=== PATIENT | male | born 1965 | race Caucasian/White ===

== ENCOUNTER 2019-08-14 10:01 | Outpatient (CLI) | payer OTHER, SELFPAY ==
[2019-08-14 10:18] LABS: Hematocrit 45.8 % (40.0-54.0); Hemoglobin 15.6 g/dL (14.0-18.0); Mean Corpuscular HGB Conc 34.1 g/dL (32.0-36.0); Mean Corpuscular Hemoglobin 29.9 pg (27.0-31.0); Mean Corpuscular Volume 87.7 fL (78.0-102.0); Mean Platelet Volume 10.5 fl (8.7-11.0); Platelet Count Result 179 K/mm3 (150-420); Red Blood Count 5.22 M/mm3 (4.70-6.10); White Blood Count 6.6 K/mm3 (4.8-10.8)
[2019-08-14 11:35] LABS: Alanine Aminotransferase 115 U/L (16-63); Albumin Level 3.8 g/dL (3.4-5.0); Alkaline Phosphatase 54 U/L (46-116); Anion Gap 14.3 mmol/L (7-16); Aspartate Amino Transferase 43 U/L (15-37); Bilirubin,Total 0.5 mg/dL (0.00-1.00); Blood Urea Nitrogen 17 mg/dL (7-18); Calcium 9.1 mg/dL (8.5-10.1); Carbon Dioxide 27 mmol/L (21-32); Chloride 103 mmol/L (98-108); Cholesterol 217 mg/dL (0-200); Estimated Glomerular Filt Rate > 60; Glucose 97 mg/dL (70-99); HDL Direct 29 mg/dL (40-60); LDL Cholesterol Calculated 163 mg/dL (<130); Osmolality Calculated 291 mOsm/kg (285-295); Potassium 4.3 mmol/L (3.5-5.1); Prostate Specific Antigen 2.2 ng/mL (< OR = 4.0); Sodium 140 mmol/L (136-145); Thyroid Stimulating Hormone 1.23 uIU/mL (0.36-3.74); Total Protein 7.1 g/dL (6.4-8.2); Triglycerides 127 mg/dL (0-150)
[2019-08-14 13:56] LABS: Add Urine Microscopic? NO; Appearance Urine Clear (Clear); Bilirubin Urine Negative (Negative); Blood Urine Negative (Negative); Color Urine Yellow (Yellow); Glucose Urine UA Negative (Negative); Ketones Urine Negative (Negative); Leukocyte Esterase Ur Negative (Negative); Nitrate Urine Negative (Negative); Protein Urine Negative (Negative); Specific Grav Ur 1.025 (1.010-1.020); Urobilinogen Urine 0.2 mg/dL (0.2-1.0)
== END 2019-08-14 10:02 | disposition home or self-care (01) ==
LOC: CHSLAB 10:06
PROVIDERS: PCP Family Medicine; Visit Provider Family Medicine
DX: Z00.00 Encounter for general adult medical examination without abnormal findings (principal)
CPT/HCPCS: 36415; 80053; 80061; 81003; 84153; 84443; 85027; G0103

== ENCOUNTER 2020-02-02 08:16 | Outpatient (CLI) | payer OTHER, SELFPAY ==
[2020-02-02 10:00] LABS: Hemoglobin A1C 5.8 % (<5.7)
[2020-02-02 10:31] LABS: Alanine Aminotransferase 49 U/L (16-63); Albumin Level 3.7 g/dL (3.4-5.0); Alkaline Phosphatase 60 U/L (46-116); Anion Gap 10 mmol/L (8-16); Aspartate Amino Transferase 26 U/L (15-37); Bilirubin,Total 0.5 mg/dL (0.00-1.00); Blood Urea Nitrogen 17 mg/dL (7-18); Calcium 9.3 mg/dL (8.5-10.1); Carbon Dioxide 28 mmol/L (21-32); Chloride 102 mmol/L (98-108); Cholesterol 212 mg/dL (0-200); Estimated Glomerular Filt Rate > 60; Glucose 116 mg/dL (70-99); HDL Direct 31 mg/dL (40-60); LDL Cholesterol Calculated 150 mg/dL (<130); Osmolality Calculated 292 mOsm/kg (285-295); Potassium 4.5 mmol/L (3.5-5.1); Sodium 140 mmol/L (136-145); Total Protein 7.3 g/dL (6.4-8.2); Triglycerides 157 mg/dL (0-150)
== END 2020-02-02 08:17 | disposition home or self-care (01) ==
LOC: CHSLAB 08:17
PROVIDERS: PCP Family Medicine; Visit Provider Family Medicine
DX: E78.2 Mixed hyperlipidemia (principal); I10 Essential (primary) hypertension; R73.01 Impaired fasting glucose
CPT/HCPCS: 36415; 80053; 80061; 83036

== ENCOUNTER → 2020-02-15 12:23 | Outpatient (CLI) | payer OTHER, SELFPAY ==
--- NOTE | ~2020-02-15 | XR_ITS ---
EXAMINATION: XR knee RT 3V DATE: 02/15/2020 13:15 INDICATION: Right knee pain. TECHNIQUE: 3 views of right knee were obtained. COMPARISON: None. FINDINGS: There is varus angulation at the knee. No fracture. There is severe osteoarthritis of media l compartment, moderate osteoarthritis of patellofemoral compartment, and mild osteoarthritis of late ral compartment. There is a small knee joint effusion. There are loose bodies in a Bah's cyst. IMPRESSION: 1. Severe right knee osteoarthritis. 2. Small knee joint effusion. 3. Loose bodies in a Bah's cyst. Reviewed, dictated and finalized at location B.
--- NOTE | ~2020-02-15 | XR_ITS ---
EXAMINATION: XR knee LT 3V DATE: 02/15/2020 13:15 INDICATION: Left knee pain. TECHNIQUE: 3 views of left knee were obtained. COMPARISON: None. FINDINGS: There is varus angulation at the knee. No fracture. There is moderate osteoarthritis of med ial compartment and mild osteoarthritis of lateral and patellofemoral compartments. There is a modera te-sized knee joint effusion. IMPRESSION: 1. Moderate left knee osteoarthritis. 2. Moderate-sized left knee joint effusion. Reviewed, dictated and finalized at location B.
== END ==
PROVIDERS: PCP Family Medicine; Visit Provider Physician Assistant
DX: M17.0 Bilateral primary osteoarthritis of knee (principal); M25.461 Effusion, right knee; M23.41 Loose body in knee, right knee; M71.21 Synovial cyst of popliteal space [Baker], right knee; M25.462 Effusion, left knee
CPT/HCPCS: 73562

== ENCOUNTER 2020-05-14 07:26 | Outpatient (CLI) | payer OTHER, SELFPAY ==
[2020-05-14 08:54] LABS: Alanine Aminotransferase 46 U/L (16-63); Albumin Level 3.7 g/dL (3.4-5.0); Alkaline Phosphatase 53 U/L (46-116); Anion Gap 7 mmol/L (8-16); Aspartate Amino Transferase 24 U/L (15-37); Bilirubin,Total 0.4 mg/dL (0.00-1.00); Blood Urea Nitrogen 18 mg/dL (7-18); Calcium 9.8 mg/dL (8.5-10.1); Carbon Dioxide 31 mmol/L (21-32); Chloride 99 mmol/L (98-108); Cholesterol 221 mg/dL (0-200); Estimated Glomerular Filt Rate 52; Glucose 116 mg/dL (70-99); HDL Direct 30 mg/dL (40-60); LDL Cholesterol Calculated 157 mg/dL (<130); Osmolality Calculated 286 mOsm/kg (285-295); Potassium 4.6 mmol/L (3.5-5.1); Sodium 137 mmol/L (136-145); Total Protein 7.3 g/dL (6.4-8.2); Triglycerides 172 mg/dL (0-150)
== END 2020-05-14 07:27 | disposition home or self-care (01) ==
LOC: CHSLAB 07:27
PROVIDERS: PCP Family Medicine; Visit Provider Physician Assistant
DX: E78.5 Hyperlipidemia, unspecified (principal); I10 Essential (primary) hypertension; R73.01 Impaired fasting glucose
CPT/HCPCS: 36415; 80053; 80061

== ENCOUNTER 2020-06-05 07:56 | Outpatient (RCR) | payer OTHER, SELFPAY ==
--- NOTE | 2020-06-05 08:47 | PTOPEVAL ---
Thank you for referring Colin Gross to [facility].? The patient is scheduled to be seen for therapy? ____x/week for ___ weeks. Please review, sign, date and return this plan of care SHYANN. I agree with and certify that the following plan of care is medically necessary. Referring Physician Date Admitting Provider: Attending Provider: Jonatan Summers MD Referring Provider: *PT Outpatient Evaluation Start: 06/05/20 07:58 Freq: Status: Active Protocol: Document 06/05/20 08:05 AARON (Rec: 06/05/20 08:47 [id number]) Therapy Assessment Status Assessment Status Assessment Status Evaluation Evaluation Information Problem Diagnosis bilateral knee OA Onset 04/23/20 Additional Evaluation Detail LEFS = 12% functionally declined Subjective Information patient reports he has been Query Text:As Reported By Patient/ having pain in the bilateral Family knees for years off and on. he reports the L knee is now the worse of the two. he reports he is trying to avoid having knee replacement. he reports he had injections to the knees in mid april. he reports since then he has aman feeling better. he reports prior to this he had a lot of trouble walking up and down steps, walking in general, and getting up and down from the ground. 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 Prior Level of Function Comments Additional Prior Level of Function patient reports he has been Comments having pain in the knee for years. he reports he is trying to put off having knee replacement until he is closer to retired or retired. Pain Assessment Timing of Pain Assessment Timing of Pain Assessment Assessment Pain Scale Pain Scale Used Numeric (1 - 10) Self Report Pain Assessment Bilateral Knee(s) Reported Pain Level 2 Pain Frequency Chronic,Continuous Lowest Pain Intensity 1 Greatest Pain Intensity 4 Pain Score Pain Score 2: Self Report Interventions Used Interventions Used By Clinicians Activity or ADL's,Education, Exercise,Heat,Ice,Walking Lower Extremity Range of Motion Knee Range of Motion Left Knee Flexion Range of Motion - Active 115
== END 2020-06-18 10:25 | disposition home or self-care (01) ==
LOC: CHSPT 07:56
PROVIDERS: PCP Family Medicine; Visit Provider Orthopaedic Surgery
DX: M17.0 Bilateral primary osteoarthritis of knee (principal)
CPT/HCPCS: 97110; 97161; 97530

== ENCOUNTER 2020-11-06 07:12 | Outpatient (CLI) | payer OTHER, SELFPAY ==
[2020-11-06 08:47] LABS: Prostate Specific Antigen 4.6 ng/mL (< OR = 4.0)
== END 2020-11-06 07:13 | disposition home or self-care (01) ==
LOC: CHSLAB 07:13
PROVIDERS: PCP Family Medicine; Visit Provider Family Medicine
DX: R35.1 Nocturia (principal)
CPT/HCPCS: 36415; 84153

== ENCOUNTER 2020-11-11 14:08 | Outpatient (CLI) | payer OTHER, SELFPAY ==
[2020-11-11 15:43] LABS: SARS-CoV-2 RNA PCR Negative (Negative)
== END 2020-11-11 14:09 | disposition home or self-care (01) ==
LOC: CHSLAB 14:11
PROVIDERS: PCP Family Medicine; Visit Provider Physician Assistant
DX: R05 Cough (principal); Z20.822 Contact with and (suspected) exposure to COVID-19
CPT/HCPCS: C9803; U0003; U0005

== ENCOUNTER 2021-01-22 09:40 | Outpatient (CLI) | payer OTHER, SELFPAY ==
[2021-01-22 09:54] LABS: Basophils Absolute Auto 0.06 K/mm3 (0.00-0.10); Basophils Percent Auto 0.9 % (0.0-1.0); Eosinophils Absolute Auto 0.11 K/mm3 (0.02-0.50); Eosinophils Percent Auto 1.7 % (1.0-6.0); Hematocrit 47.2 % (40.0-54.0); Hemoglobin 15.9 g/dL (14.0-18.0); Immature Granulocyte Absolute 0.02 K/mm3 (0.00-0.00); Immature Granulocyte Percent A 0.3 % (0.0-0.0); Lymphocytes Absolute Auto 1.85 K/mm3 (1.10-4.50); Lymphocytes Percent Auto 28.7 % (18.0-42.0); Mean Corpuscular HGB Conc 33.7 g/dL (32.0-36.0); Mean Corpuscular Hemoglobin 29.8 pg (27.0-31.0); Mean Corpuscular Volume 88.6 fL (78.0-102.0); Mean Platelet Volume 10.5 fl (8.7-11.0); Monocytes Absolute Auto 0.66 K/mm3 (0.10-0.90); Monocytes Percent Auto 10.2 % (2.0-11.0); Neutrophils Absolute Auto 3.7 K/mm3 (1.7-7.2); Neutrophils Percent Auto 58.2 % (50.0-70.0); Platelet Count Result 176 K/mm3 (150-420); Red Blood Count 5.33 M/mm3 (4.70-6.10); Red Cell Distribution Width 12.7 % (11.6-14.4); White Blood Count 6.4 K/mm3 (4.8-10.8)
[2021-01-22 09:55] LABS: Add Urine Microscopic? NO; Appearance Urine Clear (Clear); Bilirubin Urine Negative (Negative); Blood Urine Negative (Negative); Color Urine Light Yellow (Yellow); Glucose Urine UA Negative (Negative); Ketones Urine Negative (Negative); Leukocyte Esterase Ur Negative (Negative); Nitrate Urine Negative (Negative); Protein Urine Negative (Negative); Specific Grav Ur 1.015 (1.010-1.020); Urobilinogen Urine 0.2 mg/dL (0.2-1.0); pH Urine 6.5 (5.0-8.0)
[2021-01-22 10:23] LABS: Hemoglobin A1C 5.6 % (<5.7)
[2021-01-22 10:40] LABS: Alanine Aminotransferase 46 U/L (16-63); Albumin Level 3.8 g/dL (3.4-5.0); Alkaline Phosphatase 54 U/L (46-116); Anion Gap 8 mmol/L (8-16); Aspartate Amino Transferase 26 U/L (15-37); Bilirubin,Total 0.5 mg/dL (0.00-1.00); Blood Urea Nitrogen 26 mg/dL (7-18); Carbon Dioxide 31 mmol/L (21-32); Chloride 101 mmol/L (98-108); Cholesterol 220 mg/dL (0-200); Estimated Glomerular Filt Rate > 60; Glucose 104 mg/dL (70-99); HDL Direct 35 mg/dL (40-60); LDL Cholesterol Calculated 161 mg/dL (<130); Osmolality Calculated 294 mOsm/kg (285-295); Potassium 4.1 mmol/L (3.5-5.1); Sodium 140 mmol/L (136-145); Thyroid Stimulating Hormone 0.74 uIU/mL (0.36-3.74); Total Protein 7.4 g/dL (6.4-8.2); Triglycerides 120 mg/dL (0-150)
== END 2021-01-22 09:41 | disposition home or self-care (01) ==
LOC: CHSLAB 09:44
PROVIDERS: PCP Family Medicine; Visit Provider Physician Assistant
DX: E78.5 Hyperlipidemia, unspecified (principal); R73.01 Impaired fasting glucose; I10 Essential (primary) hypertension; Z00.00 Encounter for general adult medical examination without abnormal findings
CPT/HCPCS: 36415; 80053; 80061; 81003; 83036; 84443; 85025

== ENCOUNTER 2021-08-18 08:12 | Outpatient (CLI) | payer OTHER, SELFPAY ==
[2021-08-18 09:41] LABS: Influenza A QL RT-PCR Negative (Negative); Influenza B QL RT-PCR Negative (Negative); SARS-CoV-2 RNA PCR Negative (Negative)
== END 2021-08-18 08:13 | disposition home or self-care (01) ==
LOC: CHSLAB 08:15
PROVIDERS: PCP Family Medicine; Visit Provider Family Medicine
DX: R05.9 Cough, unspecified (principal); R50.9 Fever, unspecified; Z20.822 Contact with and (suspected) exposure to COVID-19
CPT/HCPCS: 87502; C9803; U0003; U0005

== ENCOUNTER 2021-08-19 06:50 | Outpatient (CLI) | payer OTHER, SELFPAY ==
--- NOTE | ~2021-08-19 | XR_ITS ---
EXAMINATION: XR chest 2V DATE: 08/19/2021 07:02 INDICATION: Cough, unspecified TECHNIQUE: Frontal and lateral views of the chest are obtained COMPARISON: None available FINDINGS: The lungs are free of acute opacities. There is no pleural effusion or pneumothorax. The ca rdiomediastinal silhouette is normal. There is mild thoracic spondylosis. IMPRESSION: 1. No acute cardiopulmonary abnormality. Reviewed, dictated and finalized at location A.
== END 2021-08-19 06:51 | disposition home or self-care (01) ==
LOC: ANHIMG 06:52
PROVIDERS: PCP Family Medicine; Visit Provider Physician Assistant
DX: R05.9 Cough, unspecified (principal)
CPT/HCPCS: 71046

== ENCOUNTER 2021-08-26 07:21 | Outpatient (CLI) | payer OTHER, SELFPAY ==
[2021-08-26 07:49] LABS: Hemoglobin A1C 6.2 % (<5.7)
[2021-08-26 08:16] LABS: Alanine Aminotransferase 44 U/L (16-63); Albumin Level 3.6 g/dL (3.4-5.0); Alkaline Phosphatase 59 U/L (46-116); Anion Gap 6 mmol/L (8-16); Aspartate Amino Transferase 24 U/L (15-37); Bilirubin,Total 0.4 mg/dL (0.00-1.00); Blood Urea Nitrogen 15 mg/dL (7-18); Calcium 9.1 mg/dL (8.5-10.1); Carbon Dioxide 32 mmol/L (21-32); Chloride 102 mmol/L (98-108); Cholesterol 206 mg/dL (0-200); Estimated Glomerular Filt Rate > 60; Glucose 118 mg/dL (70-99); HDL Direct 31 mg/dL (40-60); LDL Cholesterol Calculated 147 mg/dL (<130); Osmolality Calculated 291 mOsm/kg (285-295); Potassium 4.2 mmol/L (3.5-5.1); Sodium 140 mmol/L (136-145); Total Protein 7.4 g/dL (6.4-8.2); Triglycerides 138 mg/dL (0-150)
== END 2021-08-26 07:22 | disposition home or self-care (01) ==
LOC: CHSLAB 07:24
PROVIDERS: PCP Family Medicine; Visit Provider Physician Assistant
DX: E78.5 Hyperlipidemia, unspecified (principal); R73.01 Impaired fasting glucose; I10 Essential (primary) hypertension
CPT/HCPCS: 36415; 80053; 80061; 83036

== ENCOUNTER 2021-09-01 16:15 | Outpatient (CLI) | payer OTHER, SELFPAY ==
[2021-09-04 10:10] LABS: Testosterone Total 372 ng/dL (250-1100)
== END 2021-09-01 16:16 | disposition home or self-care (01) ==
LOC: CHSLAB 16:16
PROVIDERS: PCP Family Medicine; Visit Provider Physician Assistant
DX: R79.89 Other specified abnormal findings of blood chemistry (principal)
CPT/HCPCS: 36415; 84403

== ENCOUNTER 2021-09-15 10:20 | Outpatient (CLI) | payer OTHER, SELFPAY ==
[2021-09-15 11:45] LABS: Influenza A QL RT-PCR Positive (Negative); Influenza B QL RT-PCR Negative (Negative); SARS-CoV-2 RNA PCR Negative (Negative)
== END 2021-09-15 10:21 | disposition home or self-care (01) ==
LOC: CHSLAB 10:30
PROVIDERS: PCP Nurse Practitioner Family; Visit Provider Nurse Practitioner Family
DX: R05.9 Cough, unspecified (principal); Z20.822 Contact with and (suspected) exposure to COVID-19
CPT/HCPCS: 87502; C9803; U0003; U0005

== ENCOUNTER 2022-01-16 09:34 | Emergency (ER) | payer OTHER, SELFPAY ==
[2022-01-16] VITALS (17 sets, daily range): BP systolic 128–163; BP diastolic 84–107; PULSE 75–89; RESP 16; TEMP 37.2; O2SAT 92–99
--- NOTE | 2022-01-16 11:17 | PC.NURSE ---
1100 Assumed pt care from TIN Garcia
--- NOTE | 2022-01-16 11:46 | ED.HEATRA ---
HPI - Head Injury General Chief complaint: Head Injury Stated complaint: forehead laceration Time Seen by Provider: 01/16/22 11:28 Source: patient Mode of arrival: ambulatory Limitations: no limitations History of Present Illness HPI Narrative: This is a 56-year-old male that presents to the emergency department for a laceration to his forehead sustained just prior to arrival. Reports he was walking and accidentally hit his head on some ductwork. Reports bleeding and mild aching pain to the area. He did not lose consciousness. He is not on any blood thinners. He is not up-to-date on tetanus. Denies vision changes, vomiting, numbness, or weakness. Related Data Allergies Allergy/AdvReac Type Severity Reaction Status Date / Time amlodipine Allergy Unknown Edema Verified 01/05/22 14:12 Review of Systems Review of Systems: CONSTITUTIONAL: Denies fever SKIN: Reports laceration NEUROLOGIC: Denies headache, numbness, or weakness. All systems reviewed & are unremarkable except as noted in HPI and below PMFSH Past Medical History Medical History Allergic rhinitis BPH (benign prostatic hyperplasia) Chronic GERD Essential (primary) hypertension Family history of ASCVD (arteriosclerotic cardiovascular disease) Fatty liver disease, nonalcoholic History of diverticulitis of colon HLD (hyperlipidemia) IFG (impaired fasting glucose) DELPHINE (obstructive sleep apnea) Surgical History Surgical History History of tonsillectomy Status post labral repair of shoulder left Family History Family History Sibling Diabetes mellitus Father Hypertension Mother Hypertension Family history of cardiovascular disease Other Family history of type 2 diabetes mellitus Social History Social History Smoking status: Never smoker Second hand tobacco smoke exposure: No Alcohol intake: former Alcohol use details: rare Substance use: never Substance use type: does not use Gender identity (if verbalized by the patient): Male Sexual Orientation (if Verbalized by the Patient): Straight or Heterosexual Exam Narrative: GENERAL: Well-appearing, well-nourished, and in no acute distress. HEAD: Normocephalic. 4 cm linear laceration into subcutaneous tissue to the left side of the forehead EYES: PERRLA and EOMI. ENT: Nares clear, no rhinorrhea or epistaxis. Mucous membranes moist. Oropharynx without tonsillar hypertrophy exudate or other lesions. Bilateral TMs pearly waters non-bulging NECK: Supple. No adenopathy or masses. CHEST: No respiratory distress. HEART: Regular rate EXTREMITIES: Normal range of motion. No edema. SKIN: Warm, dry, no rash. NEURO: No focal deficits. Alert and oriented x3. Cranial nerves II through XII grossly intact PSYCH: Normal mood and affect Course Vital Signs Vital signs: Vital Signs Temperature 98.9 F 01/16/22 09:42 Pulse Rate 89 01/16/22 09:42 Respiratory Rate 16 01/16/22 09:42 Blood Pressure 128/84 01/16/22 09:42 Pulse Oximetry 98 01/16/22 09:42 Temperature 98.9 F 01/16/22 09:42 Pulse Rate 87 01/16/22 10:42 Respiratory Rate 16 01/16/22 10:42 Blood Pressure 142/96 H 01/16/22 11:17 Pulse Oximetry 97 01/16/22 11:30 Oxygen Delivery Room Air 01/16/22 11:30 Procedures Laceration Laceration 1: Date: 01/16/22 Time: 13:16 Site: face Size (cm): 4 Description: linear Depth: simple, single layer Local Anesthetic: lidocaine 1% and with epi Amount of anesthesia used (mL): 3 Pre-repair: irrigated ====== Skin Level ====== Skin layer closed with: nylon Size (cm): 5-0 Number of sutures: 7 Technique: simple, interrupted ====== Subcutaneo
[2022-01-16] MEDS: TETANUS,DIPHTHERIA,AC PERTUSSIS ADULT (0.5 ML) BOOSTRIX IM (11:51)
[2022-01-16] MEDS: ACETAMINOPHEN 500 MG TABLET 1000 MG PO (11:52)
[2022-01-16] MEDS: LIDO 1%/EPINEPHRINE 1:100,000 20 ML VIAL INFILTRATE (12:39)
== END 2022-01-16 13:30 | disposition home or self-care (01) ==
PROVIDERS: Emergency Provider Emergency Medicine; PCP Family Medicine
DX: S01.81XA Laceration without foreign body of other part of head, initial encounter (principal); Z23 Encounter for immunization; I10 Essential (primary) hypertension; E78.5 Hyperlipidemia, unspecified; N40.0 Benign prostatic hyperplasia without lower urinary tract symptoms; K21.9 Gastro-esophageal reflux disease without esophagitis; K76.0 Fatty (change of) liver, not elsewhere classified; G47.33 Obstructive sleep apnea (adult) (pediatric); W22.8XXA Striking against or struck by other objects, initial encounter
CPT/HCPCS: 12013; 90471; 90715; 99283; A9270

== ENCOUNTER 2022-02-18 07:05 | Outpatient (CLI) | payer OTHER, SELFPAY ==
[2022-02-18 07:18] LABS: Add Urine Microscopic? NO; Appearance Urine Clear (Clear); Bilirubin Urine Negative (Negative); Blood Urine Negative (Negative); Color Urine Yellow (Yellow); Glucose Urine UA Negative (Negative); Hematocrit 45.8 % (40.0-54.0); Hemoglobin 15.2 g/dL (14.0-18.0); Ketones Urine Negative (Negative); Leukocyte Esterase Ur Negative (Negative); Mean Corpuscular HGB Conc 33.2 g/dL (32.0-36.0); Mean Corpuscular Hemoglobin 28.8 pg (27.0-31.0); Mean Corpuscular Volume 86.7 fL (78.0-102.0); Mean Platelet Volume 10.3 fl (8.7-11.0); Nitrate Urine Negative (Negative); Platelet Count Result 192 K/mm3 (150-420); Protein Urine Negative (Negative); Red Blood Count 5.28 M/mm3 (4.70-6.10); Red Cell Distribution Width 13.2 % (11.6-14.4); Urobilinogen Urine 0.2 mg/dL (0.2-1.0); White Blood Count 6.9 K/mm3 (4.8-10.8); pH Urine 6.5 (5.0-8.0)
[2022-02-18 07:32] LABS: Hemoglobin A1C 5.8 % (<5.7)
[2022-02-18 08:36] LABS: Alanine Aminotransferase 44 U/L (16-63); Albumin Level 3.6 g/dL (3.4-5.0); Alkaline Phosphatase 60 U/L (46-116); Anion Gap 6 mmol/L (8-16); Aspartate Amino Transferase 23 U/L (15-37); Bilirubin,Total 0.5 mg/dL (0.00-1.00); Blood Urea Nitrogen 18 mg/dL (7-18); Calcium 8.9 mg/dL (8.5-10.1); Carbon Dioxide 30 mmol/L (21-32); Chloride 100 mmol/L (98-108); Cholesterol 203 mg/dL (0-200); Estimated Glomerular Filt Rate > 60; Glucose 127 mg/dL (70-99); HDL Direct 34 mg/dL (40-60); LDL Cholesterol Calculated 149 mg/dL (<130); Osmolality Calculated 285 mOsm/kg (285-295); Potassium 4.1 mmol/L (3.5-5.1); Prostate Specific Antigen 3.7 ng/mL (< OR = 4.0); Sodium 136 mmol/L (136-145); Thyroid Stimulating Hormone 1.09 uIU/mL (0.36-3.74); Total Protein 7.6 g/dL (6.4-8.2); Triglycerides 98 mg/dL (0-150)
[2022-02-21 11:29] LABS: Testosterone Total 401 ng/dL (250-1100)
== END 2022-02-18 07:06 | disposition home or self-care (01) ==
LOC: CHSLAB 07:07
PROVIDERS: PCP Family Medicine; Visit Provider Physician Assistant
DX: R97.20 Elevated prostate specific antigen [PSA] (principal); I10 Essential (primary) hypertension; I73.01 Raynaud's syndrome with gangrene; E78.5 Hyperlipidemia, unspecified; N40.0 Benign prostatic hyperplasia without lower urinary tract symptoms; N52.9 Male erectile dysfunction, unspecified; Z00.00 Encounter for general adult medical examination without abnormal findings
CPT/HCPCS: 36415; 80053; 80061; 81003; 83036; 84153; 84403; 84443; 85027

== ENCOUNTER 2022-02-22 13:17 | Outpatient (CLI) | payer OTHER, SELFPAY ==
--- NOTE | ~2022-02-22 | CT_ITS ---
EXAMINATION: CT diagnostic chest wo con DATE: 02/22/2022 13:39 INDICATION: Chronic cough and hemoptysis TECHNIQUE: Computed tomography (CT) of the chest was performed without intravenous contrast. The dose -length product (DLP) was 767.24 mGy-cm. Automated exposure control and iterative reconstruction tech nique were employed. COMPARISON: None FINDINGS: The lungs are free of acute opacities. No pleural effusion or pneumothorax. Calcified pulmo nary nodules are consistent with old granulomatous disease. No pathologically enlarged thoracic lymph nodes are identified. The heart size is normal. There is calcified coronary artery atherosclerosis. There is a chronic 2.1 cm left adrenal adenoma. There is moderate thoracic spondylosis. IMPRESSION: 1. No CT correlate for the patient's symptoms. Reviewed, dictated and finalized at location A.
== END 2022-02-22 13:18 | disposition home or self-care (01) ==
PROVIDERS: PCP Family Medicine; Visit Provider Physician Assistant
DX: R04.2 Hemoptysis (principal); R05.9 Cough, unspecified
CPT/HCPCS: 71250

== ENCOUNTER 2022-08-21 11:16 | Outpatient (CLI) | payer OTHER, SELFPAY ==
[2022-08-21 11:34] LABS: Hemoglobin A1C 6.6 % (<5.7)
[2022-08-21 12:02] LABS: Alanine Aminotransferase 88 U/L (16-63); Albumin Level 3.7 g/dL (3.4-5.0); Alkaline Phosphatase 68 U/L (46-116); Anion Gap 9 mmol/L (8-16); Aspartate Amino Transferase 37 U/L (15-37); Bilirubin,Total 0.4 mg/dL (0.00-1.00); Blood Urea Nitrogen 21 mg/dL (7-18); Carbon Dioxide 30 mmol/L (21-32); Chloride 100 mmol/L (98-108); Estimated Glomerular Filt Rate 55; Glucose 133 mg/dL (70-99); Osmolality Calculated 293 mOsm/kg (285-295); Potassium 4.6 mmol/L (3.5-5.1); Sodium 139 mmol/L (136-145); Total Protein 7.8 g/dL (6.4-8.2)
== END 2022-08-21 11:17 | disposition home or self-care (01) ==
PROVIDERS: PCP Family Medicine; Visit Provider Physician Assistant
DX: I10 Essential (primary) hypertension (principal); R73.01 Impaired fasting glucose
CPT/HCPCS: 36415; 80053; 83036

== ENCOUNTER 2022-11-17 09:28 | Emergency (ER) | payer OTHER, SELFPAY ==
--- NOTE | ~2022-11-17 | XR_ITS ---
EXAMINATION: XR wrist LT min 3V DATE: 11/17/2022 09:49 INDICATION: Left wrist pain and swelling post injury TECHNIQUE: Posteroanterior, ulnar deviation, oblique, and lateral views of the left wrist were obtain ed. COMPARISON: none FINDINGS: There is widening of the scapholunate interval consistent with scapholunate ligament tear. No evident associated dorsal intercalated segment instability (DISI) on the lateral projection. There is howeve r atypical predominance of osteoarthritis at the lunocapitate articulation of the midcarpal joint and at the radioscaphoid articulation of the wrist joint, the latter with subarticular cystic changes at both the radial styloid process and proximal pole of the scaphoid. This would be consistent with sca pholunate advanced collapse (SLAC) wrist and consistent with chronic tear of the scapholunate ligamen t. No fractures. Additional polyarticular osteoarthritis, moderate severity at the third metacarpopha langeal joint and mild at the distal radioulnar, triscaphe, first carpometacarpal and several of the visualized interphalangeal joints. Chronic appearing erosions along the radial side of the scaphoid w aist. No other lesions suspicious for erosions identified. Soft tissues are unremarkable. IMPRESSION: 1. Mild to moderate polyarticular osteoarthritis with atypical predominance at the lunocapitate and r adioscaphoid articulations consistent with scapholunate advanced collapse (SLAC) wrist secondary to l ikely chronic tear of the scapholunate ligament. 2. Additional atypical prominence of moderate osteoarthritis at the third metacarpophalangeal joint w hich could be related to prior trauma, infection or potentially crystalline arthropathy such as calci um pyrophosphate deposition (CPPD) disease with suggestion of erosions along the radial aspect of the scaphoid. Reviewed, dictated and finalized at location A. IMPRESSION: 1. Mild to moderate polyarticular osteoarthritis with atypical predominance at the lunocapitate and radioscaphoid articulations consistent with scapholunate a dvanced collapse (SLAC) wrist secondary to likely chronic tear of the scapholun ate ligament. 2. Additional atypical prominence of moderate osteoarthritis at the third metac arpophalangeal joint which could be related to prior trauma, infection or poten tially crystalline arthropathy such as calcium pyrophosphate deposition (CPPD) disease with suggestion of erosions along the radial aspect of the scaphoid.
[2022-11-17 09:31] VITALS: BP 182/106; PULSE 95; RESP 16; TEMP 36.3; O2SAT 95
--- NOTE | 2022-11-17 10:15 | ED.UPPEXIN ---
HPI - Extremity Injury (Upper) General Chief Complaint: Extremity Injury, Upper Stated Complaint: left hand and wrist injury Time Seen by Provider: 11/17/22 09:38 Source: patient Mode of arrival: ambulatory Limitations: no limitations History of Present Illness HPI narrative: This is a 57-year-old male that presents to the emergency department for left wrist injury sustained just prior to arrival. Reports he was trying to close a lift gate and it fell back on him. He tried to catch it with his hands and it bent his left wrist back. Reports pain to the area decreased range of motion. Denies numbness. Related Data Allergies Allergy/AdvReac Type Severity Reaction Status Date / Time amlodipine Allergy Unknown Edema Verified 11/17/22 09:29 Review of Systems Review of Systems: CONSTITUTIONAL: Denies fever SKIN: Denies laceration MUSCULOSKELETAL: Reports joint pain, and myalgia. NEUROLOGIC: Denies numbness All systems reviewed & are unremarkable except as noted in HPI and below PMFSH Past Medical History Medical History Allergic rhinitis BPH (benign prostatic hyperplasia) Chronic GERD Essential (primary) hypertension Family history of ASCVD (arteriosclerotic cardiovascular disease) Fatty liver disease, nonalcoholic History of diverticulitis of colon HLD (hyperlipidemia) IFG (impaired fasting glucose) DELPHINE (obstructive sleep apnea) Surgical History Surgical History History of tonsillectomy Status post labral repair of shoulder left Family History Family History Sibling Diabetes mellitus Father Hypertension Mother Hypertension Family history of cardiovascular disease Other Family history of type 2 diabetes mellitus Social History Social History Smoking status: Never smoker Second hand tobacco smoke exposure: No Alcohol intake: former Alcohol use details: rare Substance use: never Substance use type: does not use Lack of Transportation: No Current Housing: I Have Housing Concerned About Future Housing: No Difficulty Paying Gas/Electric Bills: No Difficulty Paying for Meds: No Currently Unemployed: No Education: Trade/Vocational Certificate Difficulty w/ Childcare or Family Care: No Living arrangements: with family Occupation/Education: occupation Gender identity (if verbalized by the patient): Male Sexual Orientation (if Verbalized by the Patient): Straight or Heterosexual Exam Narrative: GENERAL: Well-appearing, well-nourished, and in no acute distress. HEAD: Normocephalic, atraumatic. EYES: EOMI. EXTREMITIES: Mildly decreased active range of motion in the left wrist due to pain. No edema or obvious deformity. Normal radial pulse. Normal sensation SKIN: Warm, dry, no rash. NEURO: No focal deficits. Alert and oriented x3. PSYCH: Normal mood and affect Course Course Emergency Course: Patient was updated on work-up and agrees with plan of care Vital Signs Vital signs: Vital Signs Temperature 97.3 F L 11/17/22 09:31 Pulse Rate 95 11/17/22 09:31 Respiratory Rate 16 11/17/22 09:31 Blood Pressure 182/106 H 11/17/22 09:31 Pulse Oximetry 95 11/17/22 09:31 Oxygen Delivery Room Air 11/17/22 09:31 Temperature 97.3 F L 11/17/22 09:31 Pulse Rate 95 11/17/22 09:31 Respiratory Rate 16 11/17/22 09:31 Blood Pressure 182/106 H 11/17/22 09:31 Pulse Oximetry 95 11/17/22 09:31 Oxygen Delivery Room Air 11/17/22 09:31 MDM - Extremity Injury (Upper) MDM Narrative Medical decision making narrative: Patient presents to the emergency department after a left wrist injury at work today. He is neurovascularly intact. Left wrist x-ray shows chronic findings of osteoarthritis and possible evidence of CPPD, there
[2022-11-17] MEDS: LOSARTAN POTASSIUM 100 MG TABLET PO (11:15)
[2022-11-17] MEDS: IBUPROFEN 600 MG TABLET PO (11:15)
[2022-11-17 11:29] VITALS: BP 170/91; PULSE 92; RESP 17; O2SAT 96
== END 2022-11-17 11:31 | disposition home or self-care (01) ==
PROVIDERS: Emergency Provider Physician Assistant; PCP Family Medicine
DX: S63.502A Unspecified sprain of left wrist, initial encounter (principal); I10 Essential (primary) hypertension; E78.5 Hyperlipidemia, unspecified; M19.032 Primary osteoarthritis, left wrist; W22.8XXA Striking against or struck by other objects, initial encounter
CPT/HCPCS: 73110; 99283; A9270

== ENCOUNTER 2022-12-17 06:37 | Outpatient (CLI) | payer OTHER, SELFPAY ==
--- NOTE | ~2022-12-17 | MR_ITS ---
MRI of the left wrist Technique: Coronal T1 weighted and proton density fat sat images, and axial and sagittal proton-densi ty and proton-density fat-sat images were acquired. Clinical History: Sprain Findings: There is complete rupture of the scapholunate ligament, with widening of the scapholunate i nterval to 7 mm. Lunotriquetral ligament appears to be intact. Central articular disc of the TFCC balaji ears to be intact, without evidence for perforation. There is severe osteoarthritis of the radial scaphoid articulation, with cystic change and reactive m arrow edema in the scaphoid and radial styloid process. There is additional moderate to advanced dege nerative change of the STT articulations. There is mild degenerative change of the capitate lunate ar ticulation. There is a large intraosseous cyst within the hamate bone. There is dorsal tilt of the penny dereje bone with increased scapholunate angle, compatible with DISI. Flexor tendons in the carpal tunnel are unremarkable. Extensor tendons are intact. Visualized muscula ture unremarkable. No soft tissue mass or fluid collection evident. IMPRESSION: Scapholunate ligament rupture with scapholunate dissociation, and associated DISI. Associated SLAC wrist, with severe osteoarthritis of the radial scaphoid articulation, mild degenerat jorden change of the capitate lunate articulation, an additional moderate to advanced degenerative mccormick e of the STT articulations. Reviewed, dictated and finalized at location . IMPRESSION: Scapholunate ligament rupture with scapholunate dissociation, and associated DI SI. Associated SLAC wrist, with severe osteoarthritis of the radial scaphoid articu lation, mild degenerative change of the capitate lunate articulation, an additi onal moderate to advanced degenerative change of the STT articulations.
== END 2022-12-17 06:38 | disposition home or self-care (01) ==
PROVIDERS: PCP Family Medicine; Visit Provider Plastic Surgery
DX: S63.512A Sprain of carpal joint of left wrist, initial encounter (principal); M19.032 Primary osteoarthritis, left wrist
CPT/HCPCS: 73221

== ENCOUNTER 2023-02-24 10:24 | Outpatient (CLI) | payer OTHER, SELFPAY ==
--- NOTE | 2023-02-24 10:34 | ECG_ITS ---
Measurements Intervals [place] Rate: 87 P: 9 OR: 170 QRS: 255 QRSD: 138 T: 5 QT: 390 QTc: 470 Interpretive Statements SINUS RHYTHM BASELINE ARTIFACT RIGHT BUNDLE-BRANCH BLOCK ABNORMAL ECG NO PREVIOUS ECG AVAILABLE FOR COMPARISON Electronically Signed On 02-24-2023 17:18:43 CDT by Syed Norman M.D.
[2023-02-24 11:10] LABS: Anion Gap 6 mmol/L (8-16); Blood Urea Nitrogen 15 mg/dL (9-20); Calcium 8.4 mg/dL (8.4-10.2); Carbon Dioxide 26 mmol/L (22-30); Chloride 101 mmol/L (98-107); Estimated Glomerular Filt Rate > 60; Glucose 255 mg/dL (65-110); Potassium 4.3 mmol/L (3.4-5.0); Sodium 133 mmol/L (137-145)
== END 2023-02-24 10:25 | disposition home or self-care (01) ==
PROVIDERS: Anesthesiology; PCP Family Medicine; Visit Provider Plastic Surgery
DX: Z01.818 Encounter for other preprocedural examination (principal); I45.10 Unspecified right bundle-branch block; R94.31 Abnormal electrocardiogram [ECG] [EKG]; E78.5 Hyperlipidemia, unspecified; I10 Essential (primary) hypertension; Z79.899 Other long term (current) drug therapy
CPT/HCPCS: 36415; 80048; 93005

== ENCOUNTER 2023-03-03 01:08 | Day surgery (SDC) | payer OTHER, SELFPAY ==
[2023-02-18 17:45] VITALS: BMI 41.9
--- NOTE | 2023-02-18 17:46 | PC.NURSE ---
Addendum entered by Eri Cruz RN 02/21/23 12:43: NO FOOD OR DRINK FOR 8 HOURS PRIOR TO THE PROCEDURE (EXCEPT FOR SMALL SIP OF WATER TO TAKE DILTIAZEM). Original Note: Report to the Outpatient Waiting Room, entrance under the green pavilion located off [facility], at time _1000_ on date _[id number]_. Planned Procedure Time: _1200_. Time changes happen often and if your time is changed the preop area will call you the afternoon before. - You and your visitor will be asked to self-screen and do not enter if you have any COVID symptoms. - A mask is optional within the hospital at this time. Patients may have clear liquids (water, carbonated beverages, clear teas, apple juice) until 3 hours prior to surgery with a maximum of 20 ounces. - No food from midnight until time of surgery Take the following medications with a SIP of water the morning of surgery: _Diltiazem DO NOT STOP ANY OF YOUR OTHER PRESCRIPTION MEDICATIONS PRIOR TO SURGERY ?EXCEPT THE FOLLOWING Medications to discontinue per physician None Date to take last dose Please no make-up, nail portuguese, hairspray, perfume, deodorant, or body powder the day of surgery. No jewelry (including any body piercings) or valuables the day of surgery, leave them at home. Please take a shower or bath the night before, or the morning of, surgery with an antibacterial soap. Wear comfortable, loose fitting clothing. - Jewelry must be removed prior to entering the operating room. Rings and piercings that are not removed may be cut off. - The hospital will not accept responsibility for valuables. - Please leave all valuables, including medications, at home the day of surgery. If you are going home after surgery, a licensed solid waste truck driver must drive you home. - NO public transportation without another adult if you receive anesthesia. - We recommend that an adult stay with you for 24 hours following discharge. - We also recommend that you do not drive, make important decision, drink alcoholic beverages, or take any drugs that were not prescribed by your health care provider for at least 24 hours after your discharge time. Follow any additional instructions given to you from your surgeon. If you or anyone in your household have experienced Covid symptoms in the past week, please notify your surgeon or the nurse liaison at the phone number below for possible testing. Telephone instructions given to __David___and asked if any additional questions and then verbalized understanding. Patient advised to call surgeon office or pre surgery nurse liaison [phone] if any additional questions.
[2023-03-03] VITALS (13 sets, daily range): BP systolic 147–175; BP diastolic 78–110; PULSE 79–98; RESP 15–20; TEMP 36.4–36.5; O2SAT 90–97
--- NOTE | ~2023-03-03 | XR_ITS ---
EXAMINATION: XR surgery orthopedic DATE: 03/03/2023 10:58 INDICATION: Orthopedic procedure at the left wrist TECHNIQUE: 3 fluoroscopic images of the left wrist were obtained during procedure performed by Dr. Ab obrien. Radiologist was not present for the imaging or procedure. The amount of fluoroscopy time us ed during this procedure was 0.3 minutes. COMPARISON: 11/17/2022 FINDINGS: Interval resection of the scaphoid with expected lucent gas at the resection bed. Lunocapitate arthro desis with dorsal staple fixation. Alignment of the remaining carpal bones remains anatomic. Subtle i ncreased density along the lunocapitate joint line as well as in the proximal hamate at the site of a previously more lucent bone cyst likely reflect bone graft material. No fractures identified. Remaining joint spaces appear relatively preserved. IMPRESSION: 1. Fluoroscopy utilized during orthopedic procedure at the left wrist as detailed above. See procedur e note for further detail. Reviewed, dictated and finalized at location A. IMPRESSION: 1. Fluoroscopy utilized during orthopedic procedure at the left wrist as detail ed above. See procedure note for further detail.
[2023-03-03] MEDS: LACTATED RINGERS 1,000 ML 30 ML IV CONT ×2 (07:27→11:11)
--- NOTE | 2023-03-03 07:27 | WPDHPUPDATE1 ---
History and Physical Update Update Date/Time: 03/03/23 07:27 Patient seen and examined in pre-operative holding area. No interval change in medical history or symptoms. Continues to desire to proceed with left scaphoid excision, partial wrist fusion, hamate cyst curettage and grafting, posterior interosseous neurectomy and possible first extensor compartment release. Reviewed procedure, post-op expectations and risks including but not limited to bleeding, infection, injury to tendon/nerve/vessel, decreased hand function, stiffness, RSD, no change or worsening of symptoms. Patient stated understanding and signed the consent form wishing to proceed.
--- NOTE | 2023-03-03 07:28 | W.PM.PROC2 ---
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 Surgeon Kate Gar MD [facility] Lamar Slade PA-C Anesthesia General Description of Procedure Patient was seen in pre-op department of [facility] area, marked and consented. He was taken back to the operating room on the stretcher in the supine position. SCDs were placed on the LEs and inflated. Abx were given IV. A tourniquet was placed on the left upper extremity. After General anesthesia was administered I injectd 10cc 1%lido with epi and 0.5%marcaine plain for local anesthesia. The left upper extremity was prepped and draped in usual sterile fashion. I exanguinated the LUE with an esmarch and tourniuqet was inflated to 250mmHG. I proceeded with making a longitudinal incision over the wrist just ulnar to listers tubercle through skin and dermis with a 15 blade scalpel. I spread with littler scissors to retinaculum and raised full thickness skin flaps. I made an incision in the extensor retinaculum between third and fourth extensor compartments and transposed the EPL. I made a small incision in radial aspect of 4th compartment. I identified the posterior interosseous nerve in the floor of the 4th extensor compartment and used cautery and scissors to transect the distal 1 cm portion. I used bovie to elevate the majority of the 4th extensor compartment off the joint capsule. I proceeded with making my capsulotomy in an inverted T fashion and elevated off the carpus. I excised the scaphoid. This was verified on fluoroscopy. The radioscapholunate and radioscaphocapitate ligaments remained intact Next, using a rongeur I denuded the articular surfaces of the capitate and lunate to fresh bone. I used a 0.045 k-wire to maintain reduction of the capitolunate space. I proceeded with placing an arthrex dynanite staple per standard fashion and achieved good compression across the capitolunate interval. Placement of the staple was verified on multiple views of fluoroscopy. Bone graft was taken from part of the excised scaphoid and packed into/around the capitolunate fusion site. Next I took my attention to the hamate where I made a dorsal window in the cortex and proceeded with curettage of the large bone cyst. Further bone graft from the scaphoid was placed in this cavity in addition to cancellous bone chips. I Irrigated with normal saline and proceeded with closure of the capsule with 3-0 vicryl suture. 4-0 viryl was used to repair the extensor retianculum and secure 4th extensor compartment back to listers tubercle. the EPL was left transposed. The skin was closed with 4-0 monocryl for dermis and subcuticular. A dressing of Exofin,, 4x4, ron, splint, and cindi was applied after the tourniquet was let down noting the hand was warm and well perfused. The patient was awaken from anesthesia and transferred to recovery in stable condition. Complications: none EBL: 5cc Dispostiion: discharged home in stable condiition Lamar Slade PA-C was essential throughout procedure for positioning, retraction, instrumentation, closure and dressing placement [facility] [place] - Charge Forward: Surgery Billing ([id number], [id number], [id number], and [id number]. same codes for Lamar Slade but add modifier to all codes)
[2023-03-03 07:31] LABS: Glucose Point of Care 151 mg/dl (65-105)
--- NOTE | 2023-03-03 08:36 | WPDANESEPPF ---
Anes - Initial Pre Proc Eval Procedure: Operation Date: 03/03/23 09:00 Proposed Procedures p Left Wrist Scaphoid Excision Four-Corner Fusion, Pineurectomy Curettage and Grafting, Hamate Cyst, Possible First Extensor Compartment Release - Kate Gar MD Date/Time: 03/03/23 08:36 Surgeon: Kate Gar MD Pre Op Diagnosis: sprain&strain left wrist,cyst of bone unspec. site Patient Data Age: 57 Gender: M Height: 1.8 m Weight: 136 kg Last Vital Signs Temp 97.7 F 03/03/23 06:53 Pulse 94 03/03/23 06:53 Resp 18 03/03/23 06:53 BP 148/98 H 03/03/23 07:43 Pulse Ox 94 03/03/23 06:53 O2 Del Method Room Air 03/03/23 06:53 Allergies Allergy/AdvReac Type Severity Reaction Status Date / Time amlodipine AdvReac Unknown Edema Verified 03/03/23 07:12 Home Medications Medication Instructions Recorded Confirmed Type esomeprazole magnesium 20 mg 20 mg PO DAILY #1 cap 08/27/22 02/18/23 Rx capsule,delayed release (Nexium) ezetimibe 10 mg tablet (Zetia) 10 mg PO DAILY #30 tabs 08/27/22 02/18/23 Rx diltiazem HCl 120 mg 120 mg PO DAILY #90 caps 09/20/22 02/18/23 Rx capsule,extended release 24 hr, controlled (DILT-XR) triamterene 37.5 1 tablet PO QAM #90 tabs 09/20/22 02/18/23 Rx mg-hydrochlorothiazide 25 mg tablet losartan 100 mg tablet 100 mg PO DAILY #90 tabs 11/18/22 02/18/23 Rx tadalafil 10 mg tablet (Cialis) 10 mg PO DAILY PRN sexual activity 02/10/23 02/18/23 Rx #30 tabs Laboratory Tests 03/03/23 07:25 POC Capillary Glucose 151 H mg/dl (65-105) Patient hx anesthesia problems: none Family hx anesthesia problems: none Results Review: All pre-operative results and documents have been reviewed as part of the pre-operative evaluation. [facility] Past Medical History Medical History Allergic rhinitis BPH (benign prostatic hyperplasia) Chronic GERD Essential (primary) hypertension Family history of ASCVD (arteriosclerotic cardiovascular disease) Fatty liver disease, nonalcoholic History of diverticulitis of colon HLD (hyperlipidemia) IFG (impaired fasting glucose) DELPHINE (obstructive sleep apnea) Surgical History Surgical History History of tonsillectomy Status post labral repair of shoulder left Family History Family History Sibling Diabetes mellitus Father Hypertension Mother Hypertension Family history of cardiovascular disease Other Family history of type 2 diabetes mellitus Social History Social History (Updated 11/23/22 @ 13:33 by Jenny Vasquez MA) Smoking status: Never smoker Second hand tobacco smoke exposure: No Alcohol intake: former Alcohol use details: rare Substance use: never Substance use type: does not use Lack of Transportation: No Lack of Food: Never True Current Housing: I Have Housing Concerned About Future Housing: No Difficulty Paying Gas/Electric Bills: No Difficulty Paying for Meds: No Currently Unemployed: No Education: Trade/Vocational Certificate Difficulty w/ Childcare or Family Care: No Living arrangements: with family Occupation/Education: occupation Gender identity (if verbalized by the patient): Male Sexual Orientation (if Verbalized by the Patient): Straight or Heterosexual Spiritual care concerns: No Anes - Eval Final PreProcedure Day of Procedure 03/03/23 08:36 Patient weight: morbidly obese Heart: regular rate and rhythm Lungs: clear to auscultation Airway: Mallampati scale class III Neurological: alert and oriented Last oral intake: >/= 8 hours ASA classification: III Emergent: no Anesthetic plan: proceed Anesthesia type and monitoring: general LMA and standard monitoring Results Review: All pre-operative results and documents have been reviewed as part of the pre-operat
[2023-03-03] MEDS: ceFAZolin 3 GM/D5W 100 ML 100 ML IVPB (09:22)
[2023-03-03] MEDS: LIDO 1%/EPINEPHRINE 1:100,000 20 ML VIAL INFILTRATE (10:54)
[2023-03-03 11:28] LABS: Glucose Point of Care 177 mg/dl (65-105)
[2023-03-03] MEDS: oxyCODONE HCL (*CRX) 5 MG TAB IR PO (12:52)
[2023-03-03] MEDS: hydrALAZINE HCL 20 MG/ML VIAL 5 MG IV PUSH ×4 (13:20→13:55)
== END 2023-03-03 14:40 | disposition home or self-care (01) ==
PROVIDERS: PCP Family Medicine; Visit Provider Plastic Surgery
PROC: (CPT 25825; principal; 2023-03-03 09:00)
DX: S63.512A Sprain of carpal joint of left wrist, initial encounter (principal); M85.48 Solitary bone cyst, other site; M19.032 Primary osteoarthritis, left wrist; X58.XXXA Exposure to other specified factors, initial encounter; I10 Essential (primary) hypertension; E78.5 Hyperlipidemia, unspecified; G47.33 Obstructive sleep apnea (adult) (pediatric); N40.0 Benign prostatic hyperplasia without lower urinary tract symptoms; K21.9 Gastro-esophageal reflux disease without esophagitis; K76.0 Fatty (change of) liver, not elsewhere classified; E66.01 Morbid (severe) obesity due to excess calories; Z68.41 Body mass index [BMI] 40.0-44.9, adult
CPT/HCPCS: 25825; 25135; 64772; 82948; 88305; 88309; 88311; 99199; A4565; A9270; C1713; J0360; J0690; J1100; J1170; J2250; J2405; J2704; J3010; J7120

== ENCOUNTER 2023-03-10 08:45 | Outpatient (CLI) | payer OTHER, SELFPAY ==
[2023-03-10 09:16] LABS: Hemoglobin A1C 6.6 % (<5.7)
[2023-03-10 09:24] LABS: Alanine Aminotransferase 55 U/L (16-63); Albumin Level 3.1 g/dL (3.4-5.0); Alkaline Phosphatase 65 U/L (46-116); Anion Gap 7 mmol/L (8-16); Aspartate Amino Transferase 22 U/L (15-37); Bilirubin,Total 0.5 mg/dL (0.00-1.00); Blood Urea Nitrogen 21 mg/dL (7-18); Calcium 9.3 mg/dL (8.5-10.1); Carbon Dioxide 29 mmol/L (21-32); Chloride 101 mmol/L (98-108); Cholesterol 184 mg/dL (0-200); Estimated Glomerular Filt Rate > 60; Glucose 152 mg/dL (70-99); HDL Direct 29 mg/dL (40-60); LDL Cholesterol Calculated 126 mg/dL (<130); Osmolality Calculated 290 mOsm/kg (285-295); Potassium 4.8 mmol/L (3.5-5.1); Sodium 137 mmol/L (136-145); Total Protein 7.1 g/dL (6.4-8.2); Triglycerides 144 mg/dL (0-150)
== END 2023-03-10 08:46 | disposition home or self-care (01) ==
LOC: CHSLAB 08:47
PROVIDERS: PCP Family Medicine; Visit Provider Physician Assistant
DX: E78.5 Hyperlipidemia, unspecified (principal); R73.01 Impaired fasting glucose; I10 Essential (primary) hypertension
CPT/HCPCS: 36415; 80053; 80061; 83036

== ENCOUNTER 2023-03-17 08:27 | Outpatient (CLI) | payer OTHER, SELFPAY ==
--- NOTE | ~2023-03-17 | XR_ITS ---
Left wrist Technique: PA, oblique, lateral, and ulnar deviation views were obtained. Clinical History: Postoperative follow-up COMPARISON: 11/17/2022 Findings: No acute fracture identified. There is orthopedic hardware which appears to be fusing acros s the capitate lunate articulation. There is been interval resection of the scaphoid since prior exam . Probable prior resection of the trapezium also. Soft tissues are unremarkable. Impression: Orthopedic hardware transfixing the capitate and lunate. Interval resection of the scaphoid bone. Prior resection of the trapezium, stable from prior exam. Reviewed, dictated and finalized at location . MANAGEMENT Impression: Orthopedic hardware transfixing the capitate and lunate. Interval resection of the scaphoid bone. Prior resection of the trapezium, stable from prior exam.
== END 2023-03-17 08:28 | disposition home or self-care (01) ==
PROVIDERS: PCP Family Medicine; Visit Provider Plastic Surgery
DX: S63.512A Sprain of carpal joint of left wrist, initial encounter (principal); M85.60 Other cyst of bone, unspecified site; Z98.890 Other specified postprocedural states
CPT/HCPCS: 73110

== ENCOUNTER 2023-04-18 12:17 | Outpatient (CLI) | payer OTHER, SELFPAY ==
--- NOTE | ~2023-04-18 | XR_ITS ---
Left wrist Technique: PA, oblique, lateral, and ulnar deviation views were obtained. Clinical History: Postoperative COMPARISON: 03/17/2023 Findings: Patient is again noted be status post resection of the scaphoid, and likely trapezium. Stab le orthopedic across the capitate lunate articulation. Stable mild degenerative changes. Soft tissues are unremarkable. Impression: No acute abnormality. Stable postoperative changes related to apparent resection of scaphoid and trapezium, and orthopedic fusion across the capitate lunate articulation. Reviewed, dictated and finalized at location M. E FEEDER Impression: No acute abnormality. Stable postoperative changes related to apparent resection of scaphoid and trap ezium, and orthopedic fusion across the capitate lunate articulation.
== END 2023-04-18 12:18 | disposition home or self-care (01) ==
PROVIDERS: PCP Family Medicine; Visit Provider Physician Assistant Surgical
DX: M85.60 Other cyst of bone, unspecified site (principal); S63.512A Sprain of carpal joint of left wrist, initial encounter
CPT/HCPCS: 73110

== ENCOUNTER 2023-06-06 15:02 | Outpatient (CLI) | payer OTHER, SELFPAY ==
--- NOTE | ~2023-06-06 | XR_ITS ---
EXAM: XR wrist LT min 3V DATE: 06/06/2023 15:28 HISTORY: Sprain of carpal joint of left wrist, initial encounter . COMPARISON: 04/18/2023. FINDINGS: Normal mineralization. No fracture or dislocation. No lytic or blastic lesion. Scattered a rthritic changes. Scaphoid resection. Hardware fusion of the lunate and capitate. Borderline perihila r hardware lucency about the portion of the hardware in the capitate bone. No erosion or periosteal c hange. Soft tissues within normal limits. IMPRESSION: Perihilar hardware lucency in the portion of the fixation hardware in the capitate bone, may reflect loosening or infection. Status post scaphoid resection. Reviewed, dictated and finalized at location K. [employer]AN IMPRESSION: Perihilar hardware lucency in the portion of the fixation hardware in the capit ate bone, may reflect loosening or infection. Status post scaphoid resection.
== END 2023-06-06 15:03 | disposition home or self-care (01) ==
LOC: ANHIMG 15:04
PROVIDERS: PCP Family Medicine; Visit Provider Plastic Surgery
DX: S63.512A Sprain of carpal joint of left wrist, initial encounter (principal); Z98.890 Other specified postprocedural states
CPT/HCPCS: 73110

== ENCOUNTER 2023-07-18 10:52 | Outpatient (CLI) | payer OTHER, SELFPAY ==
--- NOTE | ~2023-07-18 | XR_ITS ---
Left wrist Technique: PA, oblique, lateral, and ulnar deviation views were obtained. Clinical History: Postoperative COMPARISON: 06/06/2023 Findings: No acute fracture or dislocation is seen. Stable postoperative change, with prior resection of the scaphoid, and orthopedic bolting of the lunate to the capitate. Soft tissues are unremarkable . Impression: No acute abnormality. Stable postoperative changes, as detailed above. Reviewed, dictated and finalized at location M. Impression: No acute abnormality. Stable postoperative changes, as detailed above.
== END 2023-07-18 10:53 | disposition home or self-care (01) ==
LOC: ANHIMG 10:56
PROVIDERS: PCP Family Medicine; Visit Provider Physician Assistant Surgical
DX: S63.512A Sprain of carpal joint of left wrist, initial encounter (principal); Z98.890 Other specified postprocedural states
CPT/HCPCS: 73110

== ENCOUNTER 2023-08-12 14:39 | Outpatient (CLI) | payer OTHER, SELFPAY ==
--- NOTE | ~2023-08-12 | CT_ITS ---
EXAMINATION: CT wrist LT wo con DATE: 08/12/2023 14:57 INDICATION: Sprain of carpal joint of left wrist, initial encounter. TECHNIQUE: Computed tomography (CT) of the left wrist was performed without intravenous contrast. Aut omated exposure control and iterative reconstruction technique were employed. The dose-length product was 484.32 mGy-cm. COMPARISON: Left wrist radiographs 07/18/2023, 03/17/23 FINDINGS: There is moderate osteoarthritis of first metacarpophalangeal joint, mild osteoarthritis of second metacarpophalangeal joint, and severe osteoarthritis of third metacarpophalangeal joint. Scap hoid is absent. There is severe osteoarthritis of lunate-capitate joint. There is a staple in lunate and capitate with lucency around the staple, consistent with loosening. There is a moderate osteoarth ritis of the capitate-hamate joint and lunate-hamate joint with subchondral cysts in hamate. There is moderate osteoarthritis of trapezium-trapezoid joint and first carpometacarpal joint. There is moder ate osteoarthritis of radiolunate joint. There is a pseudoarthrosis between distal radius and capitat e. There is moderate osteoarthritis of distal radioulnar joint. IMPRESSION: 1. Arthrodesis procedure at lunate-capitate joint with lucency around the staple, consistent with loo sening. 2. Absent scaphoid. 3. Polyarticular osteoarthritis. Reviewed, dictated and finalized at location A. IMPRESSION: 1. Arthrodesis procedure at lunate-capitate joint with lucency around the stapl e, consistent with loosening. 2. Absent scaphoid. 3. Polyarticular osteoarthritis.
== END 2023-08-12 14:40 | disposition home or self-care (01) ==
LOC: ANHIMG 14:42
PROVIDERS: PCP Family Medicine; Visit Provider Physician Assistant Surgical
DX: S63.512A Sprain of carpal joint of left wrist, initial encounter (principal); X58.XXXA Exposure to other specified factors, initial encounter; M19.032 Primary osteoarthritis, left wrist
CPT/HCPCS: 73200

== ENCOUNTER 2023-10-28 10:11 | Outpatient (CLI) | payer OTHER, SELFPAY ==
[2023-10-28 10:31] LABS: Hematocrit 46.9 % (40.0-54.0); Hemoglobin 15.3 g/dL (14.0-18.0); Mean Corpuscular HGB Conc 32.6 g/dL (32-36); Mean Corpuscular Hemoglobin 28.1 pg (27.0-31.0); Mean Corpuscular Volume 86.1 fL (78.0-102.0); Mean Platelet Volume 10.1 fl (8.7-11.0); Platelet Count Result 185 K/mm3 (150-420); Red Blood Count 5.45 M/mm3 (4.70-6.10); White Blood Count 7.6 K/mm3 (4.8-10.8)
[2023-10-28 10:40] LABS: Appearance Urine Clear (Clear); Bilirubin Urine 1+ (Negative); Blood Urine Negative (Negative); Color Urine Dark Yellow (Yellow); Glucose Urine UA Negative (Negative); Ketones Urine Trace (Negative); Leukocyte Esterase Ur Negative (Negative); Nitrate Urine Negative (Negative); Protein Urine 2+ (Negative); Specific Grav Ur 1.025 (1.010-1.020)
[2023-10-28 10:45] LABS: Hemoglobin A1C 5.9 % (<5.7)
[2023-10-28 10:51] LABS: Add Urine Microscopic? YES
[2023-10-28 10:52] LABS: Bacteria Urine 1+ /hpf; Cellular Casts Urine Present /lpf; Mucus Urine Heavy /lpf; RBC Urine None seen /hpf (0-2); Squamous Epithelial Cell Urine Few /hpf (Few); WBC Urine None seen /hpf (0-3)
[2023-10-28 11:27] LABS: Alanine Aminotransferase 75 U/L (16-63); Albumin Level 3.8 g/dL (3.4-5.0); Alkaline Phosphatase 62 U/L (46-116); Anion Gap 6 mmol/L (4-12); Aspartate Amino Transferase 35 U/L (15-37); Bilirubin,Total 0.6 mg/dL (0.00-1.00); Blood Urea Nitrogen 18 mg/dL (7-18); Carbon Dioxide 29 mmol/L (21-32); Chloride 101 mmol/L (98-108); Cholesterol 188 mg/dL (0-200); Estimated Glomerular Filt Rate > 60; Glucose 91 mg/dL (70-99); HDL Direct 30 mg/dL (40-60); LDL Cholesterol Calculated 134 mg/dL (<130); Osmolality Calculated 283 mOsm/kg (285-295); Potassium 4.5 mmol/L (3.5-5.1); Prostate Specific Antigen 3.8 ng/mL (< OR = 4.0); Sodium 136 mmol/L (136-145); Thyroid Stimulating Hormone 1.23 uIU/mL (0.36-3.74); Total Protein 7.5 g/dL (6.4-8.2); Triglycerides 118 mg/dL (0-150)
[2023-10-28 11:36] LABS: MALB Creatinine Ratio 25.6 mg/g (0-30); Microalbumin Urine Random 151.7 mg/L
== END 2023-10-28 10:12 | disposition home or self-care (01) ==
LOC: CHSLAB 10:12
PROVIDERS: PCP Family Medicine; Visit Provider Physician Assistant
DX: Z00.00 Encounter for general adult medical examination without abnormal findings (principal); Z12.5 Encounter for screening for malignant neoplasm of prostate; R97.20 Elevated prostate specific antigen [PSA]; I10 Essential (primary) hypertension; E78.5 Hyperlipidemia, unspecified; E11.9 Type 2 diabetes mellitus without complications
CPT/HCPCS: 36415; 80053; 80061; 81001; 82043; 83036; 84153; 84443; 85027; G0103

== ENCOUNTER 2023-11-16 15:19 | Outpatient (CLI) | payer OTHER, SELFPAY ==
[2023-11-16 15:31] LABS: Appearance Urine Clear (Clear); Bilirubin Urine Negative (Negative); Blood Urine Negative (Negative); Color Urine Light Yellow (Yellow); Glucose Urine UA Negative (Negative); Ketones Urine Negative (Negative); Leukocyte Esterase Ur Negative LEU/UL (Negative); Nitrate Urine Negative (Negative); Protein Urine Negative (Negative); Urobilinogen Urine 0.2 mg/dL (0.2-1.0)
[2023-11-16 15:32] LABS: Add Urine Microscopic? NO
== END 2023-11-16 15:20 | disposition home or self-care (01) ==
LOC: CHSLAB 15:20
PROVIDERS: PCP Family Medicine; Visit Provider Physician Assistant
DX: R82.71 Bacteriuria (principal)
CPT/HCPCS: 81003

== ENCOUNTER 2024-02-15 08:25 | Outpatient (CLI) | payer OTHER, SELFPAY ==
--- NOTE | ~2024-02-15 | XR_ITS ---
Left wrist Technique: PA, oblique, lateral, and ulnar deviation views were obtained. Clinical History: Osteoarthritis COMPARISON: 07/18/2023 Findings: No acute fracture or dislocation is seen. Prior resection of scaphoid again noted, with ort hopedic staple extending from the lunate to the capitate. There is suggestion of some lucency about t he stable. Soft tissues are unremarkable. Impression: Orthopedic staple 4 mm the capitate, with lucency about the staple, suggestive of loosening. Prior scaphoid resection. Reviewed, dictated and finalized at location M. Impression: Orthopedic staple 4 mm the capitate, with lucency about the staple, suggestive of loosening. Prior scaphoid resection.
== END 2024-02-15 08:26 | disposition home or self-care (01) ==
PROVIDERS: PCP Family Medicine; Visit Provider Plastic Surgery
DX: M19.032 Primary osteoarthritis, left wrist (principal); Z96.698 Presence of other orthopedic joint implants
CPT/HCPCS: 73110

== ENCOUNTER 2024-03-02 10:23 | Outpatient (CLI) | payer OTHER, SELFPAY ==
--- NOTE | 2024-03-02 10:40 | ECG_ITS ---
Test Date: 2024-03-02 10:55:32 Measurements Intervals [place] Rate: 81 P: -6 WV: 177 QRS: 259 QRSD: 136 T: 2 QT: 390 QTc: 453 Interpretive Statements SINUS RHYTHM MARKED RIGHT AXIS DEVIATION [QRS AXIS > 100] RIGHT BUNDLE BRANCH BLOCK [120+ ms QRS DURATION, UPRIGHT V1, 40+ ms S IN I/aVL/V4/V5/V6] No previous ECG available for comparison Electronically Signed On 03-02-2024 15:36:57 CDT by Eusebio Atkinson M.D.
[2024-03-02 11:13] LABS: Anion Gap 10 mmol/L (4-12); Blood Urea Nitrogen 22 mg/dL (9-20); Calcium 9.1 mg/dL (8.4-10.2); Carbon Dioxide 27 mmol/L (22-30); Chloride 99 mmol/L (98-107); Estimated Glomerular Filt Rate > 60; Glucose 201 mg/dL (65-110); Potassium 4.3 mmol/L (3.4-5.0); Sodium 136 mmol/L (137-145)
== END 2024-03-02 10:24 | disposition home or self-care (01) ==
LOC: ANHSURGERY 10:33
PROVIDERS: Anesthesiology; PCP Family Medicine; Visit Provider Plastic Surgery
DX: Z01.810 Encounter for preprocedural cardiovascular examination (principal); I10 Essential (primary) hypertension; Z79.899 Other long term (current) drug therapy
CPT/HCPCS: 36415; 80048; 93005

== ENCOUNTER 2024-03-07 00:22 | Day surgery (SDC) | payer OTHER, SELFPAY ==
[2024-02-29 12:13] VITALS: BMI 41.9
--- NOTE | 2024-02-29 12:18 | PC.NURSE ---
Report to the Outpatient Waiting Room, entrance under the green pavilion located off [facility], at time _0815_ on date _[id number]_. Planned Procedure Time: _1015_.? Time changes happen often and if your time is changed the preop area will call you the afternoon before. - You and your visitor will be asked to self-screen and do not enter if you have any COVID symptoms. Please call surgeon if you need to reschedule. - A mask is optional within the hospital at this time. May have clear liquids (water, carbonated beverages, clear teas, apple juice) until 215amwith a maximum of 20 ounces. Nothing to drink after 215am. - No food from midnight until time of surgery and no smoking Take only the following medications with a SIP of water on the morning of surgery: ___Diltiazem____ DO NOT STOP ANY OF YOUR OTHER PRESCRIPTION MEDICATIONS PRIOR TO SURGERY EXCEPT THE FOLLOWING Medications to discontinue per physician __None Please no make-up, nail german, hairspray, perfume, deodorant, or body powder the day of surgery.? No jewelry (including any body piercings) or valuables the day of surgery, leave them at home.? Please take a shower or bath the night before, or the morning of, surgery with an antibacterial soap.? Wear comfortable, loose fitting clothing.? - Jewelry must be removed prior to entering the operating room.? Rings and piercings that are not removed may be cut off. - The hospital will not accept responsibility for valuables.? - Please leave all valuables, including medications, at home the day of surgery. If you are going home after surgery, a licensed hack driver must drive you home.? - NO public transportation without another adult if you receive anesthesia. - We recommend that an adult stay with you for 24 hours following discharge. - We also recommend that you do not drive, make important decision, drink alcoholic beverages, or take any drugs that were not prescribed by your health care provider for at least 24 hours after your discharge time. Follow any additional instructions given to you from your surgeon. Telephone instructions given to _Colin__and asked if any additional questions and then verbalized understanding. Patient advised to call surgeon office or pre surgery nurse liaison [phone] if any additional questions.
[2024-03-07] VITALS (9 sets, daily range): BP systolic 110–165; BP diastolic 65–99; PULSE 80–99; RESP 16–20; TEMP 36.1–36.6; O2SAT 92–99
--- NOTE | ~2024-03-07 | XR_ITS ---
EXAMINATION: XR surgery orthopedic DATE: 03/07/2024 12:19 INDICATION: Left wrist lunocapitate fusion revision TECHNIQUE: 4 fluoroscopic images of the left wrist and carpus were obtained during procedure performe d by Dr. Gar. Radiologist was not present for the imaging or procedure. The amount of fluorosc opy time used during this procedure was 2.4 minutes. COMPARISON: 03/03/2023 FINDINGS: Again seen are changes of prior scaphoid resection. There is new increased lucency at the proximal po le of the capitate surrounding the previously placed dorsal sided fixation staple. Intraluminal capit ate articulation appears to remain unfused with some osteolysis loss of bone stock at the lunate. Sub sequent images demonstrate removal of the staple fixation and revision of the lunocapitate are arthro desis which is now fixed with a pair of cannulated compression screws. Alignment of the remaining bon es remains near-anatomic. There is residual postoperative gas at the radial aspect of the carpus at t he site of the previously resected scaphoid. Mild osteoarthritis at the remaining joints at the left wrist and carpus. IMPRESSION: 1. Fluoroscopy utilized during revision of a prior attempted lunocapitate arthrodesis with removal of the prior fixation staple placement of a pair of compression screws. See procedure note for further detail. Reviewed, dictated and finalized at location A. IMPRESSION: 1. Fluoroscopy utilized during revision of a prior attempted lunocapitate arthr odesis with removal of the prior fixation staple placement of a pair of kamar antoinette screws. See procedure note for further detail.
--- NOTE | 2024-03-07 07:01 | WPDHPUPDATE1 ---
History and Physical Update Update Date/Time: 03/07/24 07:01 Patient seen and examined in pre-operative holding area. No interval change in medical history or symptoms. Patient recalls previous discussion of benefits and alternatives to procedure. Continues to desire to proceed with left wrist capitolunate fusion revision, hardware removal, possible proximal row carpectomy, possible four corner fusion. Reviewed procedure, post-op expectations and risks including but not limited to bleeding, infection, injury to tendon/nerve/vessel, decreased hand function, stiffness, RSD, no change or worsening of symptoms, hardware complications. I discussed the possible use of assistants and their participation in the case. Patient stated understanding and signed the consent form wishing to proceed.
--- NOTE | 2024-03-07 07:02 | W.PM.PROC2 ---
Procedure Note - Detailed Date of Procedure 03/07/24 Pre-op Diagnosis primary OA wrist Post-op Diagnosis Same Procedure Performed removal deep hardware left wrist, capitolunate fusion revision Surgeon Kate Gar MD Bar Roller mary acosta pa-c Anesthesia General Description of Procedure INFORMED CONSENT: The patient was seen and examined and marked in the pre-op area.? The patient signed the consent form. PROCEDURE IN DETAIL:The patient taken back to OR on the stretcher in supine position. Time out performed with anesthesia, surgeon and staff agreeing on patient's name site and surgery to be performed SCDs were placed on the lower extremities and inflated. A tourniquet was placed on {left} upper extremity and antibiotics given IV After anesthesia administered sedation I injected {10}cc 1%lido with epi and 0.5% marcaine plain for median, ulnar, radial nerve block The?{left upper extremity}?was prepped and draped in sterile fashion the??{left upper extremity} was? exsanguinated with Esmarch bandage and tourniquet inflated to 250mmHg I proceeded with making a longitudinal incision over the left wrist 4th extensor compartment through the patient's previous surgical scar with a 15 blade scalpel. With a combination of scalpel and Bovie cautery I elevated the entire 4th extensor compartment off the wrist capsule dividing between the 3rd and 4th extensor compartments. For capsulotomy I creasted proximally based flap over the capitolunate in the event I would need to proceed with PRC. Other capsule flaps were elevated to expose the capitolunate failed fusion site. The Nitinol stable between the capitate and lunate was identified. This was removed noting larger cystic area in the capitate. With progressive capsular and scar tissue release I was able to achieve a reasonable reduction of the capitolunate angle though some persistent radial translocation of the capitate still existed. This was provisionally pinned in retrograde faschion through 3rd metacarpaal with k-wire and verified on multiple views of fluoroscopy. Noting that reasonable reduction was possible and maintainable with k-wires, the k-wire was backed out to allow expossure to the surfaces between the capitate and lunate. a 3mm alo was used to denude these scarred surfaces or any retained articular cartilage till cancellous bone was noted. Having prepared this fusion site I again reduced the capitatolunate junction and secured with the first k-wire. Satisfied with the reduction and capitolunate angle a second k-wire was placed in retrgorade fashion across the capitolunate and into the radius. k-wire placement was verified on multiple views of fluoro. I made an incision between these two k-wires with 15 blade through skin and dermis and used littler scissors to spread down to their insertion in the 3rd metacarpal base noting no impingement on tendon or sensory nerve. I proceeded with drilling over the radial most k-wire under live fluor all the way down to the lunate stopping proximal to the proximal articular surface. I measured the planned screw distance and proceeded with placing a 22mm 3.5mm headless compression screw in standard fashion and verified under fluoro. the radial guide wire was removed. screw placement was verified on fluoro. I next proceeded with drilling over the ulnar k-wire and placed a 26mm 3.5mm headless compression screw into the capitate and lunate with direct fluoro visualization. the guide wire was removed. There was good compression across the fracture site and maintenance of reduction on multiple views of fluoro. It was noted that a 5-6mm segment of screw threads were visible on the dorsal surface of the capitate but the fixation appeared stable and this was only proud by about 1mm. I irrigated with normal saline. A paste was prepared of Allosync Pure DBM and packed around the fusion site and covering the area of exposed screw threads. The proximally based dorsal capsule flap was secured down to capitate to keep this DBM in place with 2-0 vicryl suture. 2-0 vicryl was used to secure the other capsule flaps. The 4th extensor compartment/extensor retianculum was repaired with 3-0 vicryl. 3-0 vicryl was used for dermis and 4-0 monocryl for subcuticular. A dressing of Dermabond, 4x4, ron, and a thumb spica splint was applied for patient safety, security, and comfort and secured with an cindi bandage after the tourniquet was let down noting the hand was warm and well perfused. The patient was then awaken from anesthesia and transferred to the recovery room in stable condition.? Complications - none EBL- 10cc Disposition - home in stable conditions Mary Acosta PA-C was essential for positioning, retraction, closure, fluoro, hardware manipulation and dressing placement [facility] Surgery - Charge Forward: Surgery Billing ([id number], [id number], same for mary modifier )
[2024-03-07 09:27] LABS: Glucose Point of Care 130 mg/dl (65-105)
--- NOTE | 2024-03-07 09:51 | WPDANESEPPF ---
Anes - Initial Pre Proc Eval Procedure: Operation Date: 03/07/24 10:15 Proposed Procedures p Left Wrist Capitolunate Fusion Revision, Hardware Removal, Possible Proximal Row Carpectomy Left Wrist - Kate Gar MD Date/Time: 03/07/24 09:51 Surgeon: Kate Gar MD Pre Op Diagnosis: primary OA wrist Patient Data Age: 58 Gender: M Height: 1.8 m Weight: 145.6 kg Last Vital Signs Temp 36.1 C L 03/07/24 08:35 Pulse 80 03/07/24 08:35 Resp 20 03/07/24 08:35 BP 165/99 H 03/07/24 08:35 Pulse Ox 97 03/07/24 08:35 O2 Del Method Room Air 03/07/24 08:35 Allergies Allergy/AdvReac Type Severity Reaction Status Date / Time amlodipine AdvReac Unknown Edema Verified 02/29/24 12:12 Home Medications Medication Instructions Recorded Confirmed Type esomeprazole magnesium 20 mg 20 mg PO DAILY #1 cap 08/27/22 03/07/24 Rx capsule,delayed release (Nexium) losartan 100 mg tablet 100 mg PO DAILY #90 tabs 12/01/23 03/07/24 Rx semaglutide 0.25 mg or 0.5 mg (2 0.5 mg (0.736 mL) subcut WEEKLY #3 12/01/23 03/07/24 Rx mg/3 mL) subcutaneous pen injector mL triamterene 37.5 1 tablet PO QAM #90 tabs 01/20/24 03/07/24 Rx mg-hydrochlorothiazide 25 mg tablet tadalafil 10 mg tablet (Cialis) 10 mg PO DAILY PRN sexual activity 01/31/24 02/29/24 Rx #30 tabs diltiazem HCl 120 mg 120 mg PO DAILY #90 caps 02/24/24 03/07/24 Rx capsule,extended release 24 hr, controlled (DILT-XR) glucosamine sulf dipot 1 cap PO BID 03/07/24 03/07/24 History chlr,msm,chond 550 mg-C 30 mg-kitty 1 mg capsule (Glucosamine Chondroitin) Laboratory Tests 03/07/24 09:24 POC Capillary Glucose 130 H mg/dl (65-105) Patient hx anesthesia problems: none Family hx anesthesia problems: none Results Review: All pre-operative results and documents have been reviewed as part of the pre-operative evaluation. [facility] Past Medical History Medical History Allergic rhinitis BPH (benign prostatic hyperplasia) Chronic GERD Essential (primary) hypertension Family history of ASCVD (arteriosclerotic cardiovascular disease) Fatty liver disease, nonalcoholic History of diverticulitis of colon HLD (hyperlipidemia) IFG (impaired fasting glucose) DELPHINE (obstructive sleep apnea) Surgical History Surgical History History of tonsillectomy Status post labral repair of shoulder left Family History Family History Sibling Diabetes mellitus Father Hypertension Mother Hypertension Family history of cardiovascular disease Other Family history of type 2 diabetes mellitus Social History Social History Smoking status: Never smoker Second hand tobacco smoke exposure: No Alcohol intake: former Alcohol use details: rare Substance use: never Substance use type: does not use Lack of Transportation: No Lack of Food: Never True Current Housing: I Have Housing Concerned About Future Housing: No Difficulty Paying Gas/Electric Bills: No Difficulty Paying for Meds: No Currently Unemployed: No Education: Trade/Vocational Certificate Difficulty w/ Childcare or Family Care: No Living arrangements: with family Occupation/Education: occupation Gender identity (if verbalized by the patient): Male Sexual Orientation (if Verbalized by the Patient): Straight or Heterosexual Spiritual care concerns: No Anes - Eval Final PreProcedure Day of Procedure 03/07/24 09:51 Patient weight: morbidly obese Heart: regular rate and rhythm Lungs: clear to auscultation and normal air movement Airway: Mallampati scale class III and special considerations large neck and large tongue Neurological: alert and oriented Last oral intake: >/= 8 hours ASA classification: III Emergent: no Anesthetic plan: proceed Anesthesia type and monitoring: general (glidescope) ETT and standard monitoring Results Review: All pre-operative results and documents have been reviewed as part of the pre-operative evaluation. Informed Consent: The patient's anesthetic plan and its attendant risks and benefits were discussed with the patient/family/POA. Questions were solicited and answers provided to the satisfaction of the patient/family/POA.
[2024-03-07] MEDS: ceFAZolin 3 GM/D5W 100 ML 100 ML IVPB (09:59)
[2024-03-07] MEDS: LIDO 1%/EPINEPHRINE 1:100,000 20 ML VIAL 10 ML INFILTRATE (10:05)
[2024-03-07] MEDS: BUPivacaine HCL 0.5% PF 30 ML VIAL 10 ML INFILTRATE (10:05)
[2024-03-07] MEDS: LACTATED RINGERS 1,000 ML 30 ML IV CONT ×2 (12:42)
[2024-03-07 12:53] LABS: Glucose Point of Care 160 mg/dl (65-105)
[2024-03-07] MEDS: fentaNYL CITRATE INJ (*CRX) 100 MCG/2 ML VIAL 25 MCG IV PUSH ×2 (13:10→13:14)
[2024-03-07] MEDS: oxyCODONE HCL (*CRX) 5 MG TAB IR PO (13:45)
== END 2024-03-07 14:25 | disposition home or self-care (01) ==
PROVIDERS: PCP Family Medicine; Visit Provider Plastic Surgery
PROC: (CPT 64721; principal; 2024-03-07 10:15)
DX: M19.032 Primary osteoarthritis, left wrist (principal); S63.512A Sprain of carpal joint of left wrist, initial encounter; X58.XXXA Exposure to other specified factors, initial encounter; I10 Essential (primary) hypertension; E78.5 Hyperlipidemia, unspecified; G47.33 Obstructive sleep apnea (adult) (pediatric); N40.0 Benign prostatic hyperplasia without lower urinary tract symptoms; K21.9 Gastro-esophageal reflux disease without esophagitis; K75.81 Nonalcoholic steatohepatitis (NASH); Z79.85 Long-term (current) use of injectable non-insulin antidiabetic drugs; E66.01 Morbid (severe) obesity due to excess calories; Z68.41 Body mass index [BMI] 40.0-44.9, adult
CPT/HCPCS: 25820; 82948; 88300; 99199; A9270; C1713; J0330; J0690; J1100; J2003; J2004; J2250; J2405; J2704; J3010; J7120

== ENCOUNTER 2024-03-20 10:18 | Outpatient (CLI) | payer OTHER, SELFPAY ==
--- NOTE | ~2024-03-20 | XR_ITS ---
EXAMINATION: XR wrist LT min 3V DATE: 03/20/2024 10:37 INDICATION: Left wrist primary osteoarthritis. TECHNIQUE: 4 views of left wrist were obtained. COMPARISON: Left wrist radiographs 02/15/2024 FINDINGS: Scaphoid is absent. There are changes of arthrodesis of lunate-capitate joint with 2 screws . There is severe osteoarthritis of lunate-hamate joint and mild osteoarthritis of first carpometacar pal joint. Again seen are multiple radiopaque foreign bodies measuring up to 2 mm overlying the finge rs. IMPRESSION: 1. Arthrodesis procedure of lunate-capitate joint. 2. Polyarticular osteoarthritis. 3. Small radiopaque foreign bodies again seen overlying the fingers. Reviewed, dictated and finalized at location A. Y SCIENCE TEACHER
== END 2024-03-20 10:19 | disposition home or self-care (01) ==
LOC: ANHIMG 10:25
PROVIDERS: PCP Family Medicine; Visit Provider Physician Assistant Surgical
DX: M19.032 Primary osteoarthritis, left wrist (principal); S63.512A Sprain of carpal joint of left wrist, initial encounter; Z98.1 Arthrodesis status; X58.XXXA Exposure to other specified factors, initial encounter
CPT/HCPCS: 73110

== ENCOUNTER 2024-04-02 09:17 | Outpatient (CLI) | payer OTHER, SELFPAY ==
--- NOTE | ~2024-04-02 | XR_ITS ---
XR wrist LT min 3V Ordering provider: Kate Gar MD History: . s/p left wrist partial fusion, follow up from surgery . Comparison: None. FINDINGS: BONES: Postoperative changes with screws connecting the capitate with the lunate bone. Status post re moval of the scaphoid bone. JOINT SPACES: Narrowing of the intercarpal joints. SOFT TISSUES: Normal. IMPRESSION: Postoperative changes as described above. Reviewed, dictated and finalized at location A. H INSPECTOR
== END 2024-04-02 09:18 | disposition home or self-care (01) ==
PROVIDERS: PCP Family Medicine; Visit Provider Plastic Surgery
DX: M85.60 Other cyst of bone, unspecified site (principal); S63.512A Sprain of carpal joint of left wrist, initial encounter; X58.XXXA Exposure to other specified factors, initial encounter; Z96.7 Presence of other bone and tendon implants; Z98.890 Other specified postprocedural states
CPT/HCPCS: 73110

== ENCOUNTER 2024-04-27 10:00 | Outpatient (CLI) | payer OTHER, SELFPAY ==
--- NOTE | ~2024-04-27 | XR_ITS ---
Left wrist Technique: PA, oblique, lateral, and ulnar deviation views were obtained. Clinical History: Osteoarthritis COMPARISON: 04/02/2024 Findings: No acute fracture or dislocation is seen. Osseous alignment is unchanged. Stable orthopedic fusion across the capitate lunate reticulation. Status post prior resection of the trapezium and sca phoid. Soft tissues are unremarkable. Impression: Stable degenerative changes. Stable orthopedic fusion of the capitate and lunate. Prior resection of the scaphoid and trapezium. Reviewed, dictated and finalized at location M. LE MANAGER Impression: Stable degenerative changes. Stable orthopedic fusion of the capitate and lunat e. Prior resection of the scaphoid and trapezium.
== END 2024-04-27 10:01 | disposition home or self-care (01) ==
LOC: ANHIMG 10:07
PROVIDERS: PCP Family Medicine; Visit Provider Plastic Surgery
DX: M19.032 Primary osteoarthritis, left wrist (principal); Z98.1 Arthrodesis status; Z96.691 Finger-joint replacement of right hand
CPT/HCPCS: 73110

== ENCOUNTER 2024-05-24 09:32 | Outpatient (CLI) | payer OTHER, SELFPAY ==
--- NOTE | ~2024-05-24 | XR_ITS ---
XR wrist LT min 3V Ordering provider: Lamar Slade PA-C History: . S63.512A - Sprain of carpal joint of left wrist, initial ... . Comparison: April 27, 2024 FINDINGS: BONES: Postoperative changes fixating the scaphoid and lunate bone. Otherwise, No acute fracture or d islocation. No definite scaphoid fracture. JOINT SPACES: Narrowing of the radiocarpal and intercarpal joints. SOFT TISSUES: Normal. IMPRESSION: No acute osseous abnormality left wrist. Postoperative changes. No change from previous examination. Reviewed, dictated and finalized at location A. DENTIAL AIR SEALING TECHNICIAN
== END 2024-05-24 09:33 | disposition home or self-care (01) ==
PROVIDERS: PCP Family Medicine; Visit Provider Physician Assistant Surgical
DX: S63.512A Sprain of carpal joint of left wrist, initial encounter (principal); X58.XXXA Exposure to other specified factors, initial encounter; M19.032 Primary osteoarthritis, left wrist
CPT/HCPCS: 73110

== ENCOUNTER 2024-06-21 14:04 | Outpatient (CLI) | payer OTHER, SELFPAY ==
--- NOTE | ~2024-06-21 | CT_ITS ---
EXAMINATION: CT wrist LT wo con DATE: 06/21/2024 14:21 INDICATION: Primary osteoarthritis, left wrist. TECHNIQUE: Computed tomography (CT) of the left wrist was performed without intravenous contrast. Aut omated exposure control and iterative reconstruction technique were employed. The dose-length product was 447.11 mGy-cm. COMPARISON: Left wrist radiographs 05/24/2024, 11/17/2022, CT 08/12/2023 FINDINGS: Scaphoid is absent. There is radial subluxation of capitate and hamate with respect to sandra te. There are changes of fusion procedure at lunate-capitate joint with 2 screws. There are lucencies around the screws, consistent with loosening. On 11/17/22, lunate did not articulate with hamate. The re is a pseudoarthrosis between lunate and hamate with severe osteoarthritis and proximal hamate bone volume loss. There is no acute fracture. There is moderate osteoarthritis of distal radioulnar joint and first carpometacarpal joint. There is severe osteoarthritis of third metacarpophalangeal joint a nd mild osteoarthritis of some of the other metacarpophalangeal joints. IMPRESSION: 1. Failed fusion procedure at lunate-capitate joint. 2. Absent scaphoid. 3. Polyarticular osteoarthritis. Reviewed, dictated and finalized at location A. LE INSTALLER
--- OUTSIDE RECORDS SUMMARY | 2024-06-21 14:16 | XMS_ITS | Referral Summary ---
Author Organization [facility] [address] Address [address] [place] [address] Care Team Providers Care Greige Goods Examiner Name Role Phone Bib Sheikh MD Primary Care Provider Allergies No known active allergies Medications raNITIdine (ZANTAC) 150 mg tablet 10/17/2017 Active lisinopril (PRINIVIL,ZESTRI L) 40 mg tablet Take 40 mg by mouth daily. 1 08/17/2017 Active chlorthalidone 25 mg tablet Take 12.5 mg by mouth daily. 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 Gender Identity Not on file Sexual Orientation Not on file Last Filed Vital Signs Vital Sign Reading Time Taken Comments Blood Pressure 136/80 12/06/2017 3:36 PM CDT Pulse 84 12/06/2017 3:36 PM CDT Temperature - - Respiratory Rate 12 10/18/2017 3:06 PM CDT Oxygen Saturation 96% 12/06/2017 3:36 PM CDT Inhaled Oxygen Concentration - - Weight 136.4 kg (300 lb 9.6 oz) 12/06/2017 3:36 PM CDT Height 182.9 cm (6') 12/06/2017 3:36 PM CDT Body Mass Index 40.77 12/06/2017 3:36 PM CDT Plan of Treatment Not on file Insurance [employer] [facility] Care Teams Greige Goods Examiner Relationship Specialty Start Date End Date Bib Sheikh MD [address] [place], [place] [id number] PCP - General Family Medicine 07/22/17
--- OUTSIDE RECORDS SUMMARY | 2024-06-21 14:16 | XMS_ITS | Clinical Summary ---
Author Organization [facility] [address] Address [address] [place] [address] Care Team Providers Care Diabetes Physician Name Role Phone Bib Sheikh MD Primary [...] obesity with BMI of 40.0-44.9, adult 10/07 Family History Medical History Relation Name Comments Parkinsonism Mother Stent Mother Diabetes Sister Relation Name Status Comments Brother Alive Father car accident Mother Alive Sister Alive Social History Tobacco Use Types Packs/Day Years Used Date Smoking Tobacco: Never Smokeless Tobacco: Never Alcohol Use Standard Drinks/Week Comments Yes 0 (1 standard drink = 0.6 oz pur e alcohol) Sex and Gender Information Value Date Recorded Sex Assigned at Not on file 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
== END 2024-06-21 14:05 | disposition home or self-care (01) ==
PROVIDERS: PCP Family Medicine; Visit Provider Plastic Surgery
DX: M19.032 Primary osteoarthritis, left wrist (principal); S63.512A Sprain of carpal joint of left wrist, initial encounter; M85.60 Other cyst of bone, unspecified site; M96.0 Pseudarthrosis after fusion or arthrodesis; Z89.122 Acquired absence of left wrist
CPT/HCPCS: 73200

== ENCOUNTER 2024-07-09 11:59 | Outpatient (CLI) | payer OTHER, SELFPAY | END 2024-07-09 12:00 | disposition home or self-care (01) | PROVIDERS: PCP Family Medicine; Visit Provider Orthopaedic Surgery | DX: M17.0 Bilateral primary osteoarthritis of knee (principal) | CPT/HCPCS: 73564 ==

== ENCOUNTER 2024-07-24 08:10 | Outpatient (RCR) | payer OTHER, SELFPAY ==
--- NOTE | 2024-07-24 08:08 | OPREHPOC ---
Outpatient Therapy Plan of Care This is a Multidisciplinary Plan of Care that may contain components documented by all disciplines (PT, OT, and ST.) PT Problem 1 PT Problem #1 Knowledge Deficit PT Goal 1 Goal / Goal Update 1. independent and compliant with HEP Target Visit 4 PT Problem 2 PT Problem #2 Pain PT Goal 1 Goal / Goal Update 1. pain at worst to be 4/10 or less in the bilateral knees in the last week. Target Visit 8 PT Problem 3 PT Problem #3 Impaired Range of Motion PT Goal 1 Goal / Goal Update 1. 120 degrees active bilateral knee flexion Target Visit 8 PT Problem 4 PT Problem #4 Impaired Strength PT Goal 1 Goal / Goal Update 1. 5/5 bilateral LE strength overall Target Visit 8 PT Problem 5 PT Problem #5 Impaired Functional Mobility PT Goal 1 Goal / Goal Update 1. LEFS to display 30% or less functional deficits 2. patient to ambulate with normal gait mechanics and equal stance time/weight bearing. 3. patient to ambulate up and down steps with reciprocal mechanics and no increased pain Target Visit 8
--- NOTE | 2024-07-24 08:09 | PTOPEVAL1 ---
Assessment and note entered by JT File, PT Evaluation Information Assessment Status Evaluation Diagnosis bilateral primary knee OA ICD-10 Condition Codes (PT) Pain in right knee M25.561,Pain in left knee M25. 562 Other ICD-10 Condition Codes ( M17.0 PT) Onset 07/19/24 Subjective Information patient reports he is bone on bone in both knees. he reports about 4-5 years ago he was having pain in the knees and began to manage with shots and medications. he just recently had shots in both knees again and they have helped. he reports he has increased pain in his bilateral knees walking, standing, steps, and getting up and down. he reports he has less pain when sitting or when off of his feet. he reports he returns to see the ortho in about a month. Reported Pain Level Pain Score 4: Self Report Assessment PT Clinical Summary mr. longo is a a 59 yo man who presents to skilled PT services for evaluation and treatment of bilateral knee pain. he presents today with signs and symptoms consistent with bilateral knee OA, and possible secondary menisus damage. he displays decreased bilateral knee flexion rom, pain with bilateral knee lateral mcmurrays testing , weakness of the LE's, and abnormal gait mechanics. he is improved since his injections to the bilateral knees, but would benefit from continued skilled PT to improve his objective/ functional deficits and return to prior level functional activity performance/quality of life. Plan of Care Interventions Electrical Stimulation,Gait Training,Hot Pack/Cold Pack,Manual Therapy,Neuro Re-education,Patient/ Caregiver Education,Therapeutic Activities, Therapeutic Exercise PT Services Indicated Yes Treatment Frequency and 2x weekly for 8 visits Duration These treatments will address the objective and functional deficits as defined above. The patient will be advanced safely and appropriately in order for the patient to progress towards his/her prior level of function. Additional exercises will be introduced and as well as a comprehensive home exercise program upon discharge, if needed, ?to ensure carryover of functional gains achieved in the clinic. This treatment plan has been reviewed and agreement upon by the patient.
--- NOTE | 2024-08-02 14:18 | OPREHPOC ---
Outpatient Therapy Plan of Care This is a Multidisciplinary Plan of Care that may contain components documented by all disciplines (PT, OT, and ST.) PT Problem 1 PT Problem #1 Knowledge Deficit PT Goal 1 Goal / Goal Update 1. independent and compliant with HEP Target Visit 4 Progress Met PT Problem 2 PT Problem #2 Pain PT Goal 1 Goal / Goal Update 1. pain at worst to be 4/10 or less in the bilateral knees in the last week. Target Visit 8 Progress Met PT Problem 3 PT Problem #3 Impaired Range of Motion PT Goal 1 Goal / Goal Update 1. 120 degrees active bilateral knee flexion Target Visit 8 Progress Not Met PT Problem 4 PT Problem #4 Impaired Strength PT Goal 1 Goal / Goal Update 1. 5/5 bilateral LE strength overall Target Visit 8 Progress Met PT Problem 5 PT Problem #5 Impaired Functional Mobility PT Goal 1 Goal / Goal Update 1. LEFS to display 30% or less functional deficits -not met 2. patient to ambulate with normal gait mechanics and equal stance time/weight bearing. -met 3. patient to ambulate up and down steps with reciprocal mechanics and no increased pain -not met Target Visit 8 Progress Partially Met
--- NOTE | 2024-08-02 14:18 | PTOPDC ---
Assessment and note entered by Riya Puentes, PT Evaluation Information Assessment Status Discharge Diagnosis bilateral primary knee OA ICD-10 Condition Codes (PT) Pain in right knee M25.561,Pain in left knee M25. 562 Other ICD-10 Condition Codes ( M17.0 PT) Onset 07/19/24 Subjective Information Colin reports his knees are feeling better since getting steroid shots in them but still does have some pain. He reports that prior to getting the shots he could barely walk, but now he's able to walk around his house and the grocery store without much difficulty. He reports he's been independent with his HEP since starting therapy and would like to be discharged due to upcoming surgery on his wrist. Reported Pain Level Pain Score 2: Self Report Assessment PT Clinical Summary Mr. Gross has attended 3 total skilled physical therapy visits for bilateral knee pain due to osteoarthritis. Since starting therapy and getting cortisone shots in his knees he notes moderate reduction in pain that has allowed him to walk longer distances with less pain. Despite attending only 3 skilled PT visits, he demonstrates good lower extremity strength and knee AROM is slightly limited but symmetrical. He is satisfied with this improvement in his pain, has been independent with his HEP and wishes to discharge from physical therapy before his upcoming wrist surgery . Plan of Care PT Services Indicated No
== END 2024-08-02 14:27 | disposition home or self-care (01) ==
LOC: CHSPT 08:10
PROVIDERS: Visit Provider Physician Assistant Surgical
DX: M17.0 Bilateral primary osteoarthritis of knee (principal)
CPT/HCPCS: 97110; 97112; 97161; 97530

== ENCOUNTER 2024-09-18 09:28 | Outpatient (CLI) | payer OTHER, SELFPAY ==
[2024-09-18 09:39] LABS: Basophils Absolute Auto 0.06 K/mm3 (0.00-0.10); Basophils Percent Auto 0.8 % (0.0-1.0); Eosinophils Absolute Auto 0.13 K/mm3 (0.02-0.50); Eosinophils Percent Auto 1.7 % (1.0-6.0); Hematocrit 43.1 % (40.0-54.0); Hemoglobin 13.6 g/dL (14.0-18.0); Immature Granulocyte Absolute 0.09 K/mm3 (0.00-0.00); Immature Granulocyte Percent A 1.2 % (0.0-0.0); Lymphocytes Absolute Auto 2.03 K/mm3 (1.10-4.50); Lymphocytes Percent Auto 26.4 % (18.0-42.0); Mean Corpuscular HGB Conc 31.6 g/dL (32-36); Mean Corpuscular Volume 85.5 fL (78.0-102.0); Mean Platelet Volume 10.1 fl (8.7-11.0); Monocytes Absolute Auto 0.69 K/mm3 (0.10-0.90); Neutrophils Percent Auto 60.9 % (50.0-70.0); Platelet Count Result 201 K/mm3 (150-420); Red Blood Count 5.04 M/mm3 (4.70-6.10); Red Cell Distribution Width 13.9 % (11.6-14.4); White Blood Count 7.7 K/mm3 (4.8-10.8)
--- OUTSIDE RECORDS SUMMARY | 2024-09-18 09:41 | XMS_ITS | Referral Summary ---
Author Organization [facility] [address] Address [address] [place] [address] Care Team Providers Care Fabrication Supervisor Name Role Phone Bib Sheikh MD Primary Care Provider Encounters Date Type Department Care Team Description 08/27/2024 Telephone [facility] Orthopaedic Surgery [address] [facility] 2nd Floor [address] [place] [address] Ibeth Kaufman, A [id number] N 08/22/2024 10:00 AM CDT Office Visit [facility] Orthopaedic Surgery [address] [place] [address] Floor [address] [place] [phone] Maria Alejandra Brown MD Left wrist pain (Primary Dx) 08/08/2024 Documentation [facility] Orthopaedic Surgery [address] [place] [address] Floor [address] [place] [phone] Maria Alejandra Brown MD 08/07/2024 7:30 AM CDT - 08/07/2024 9:45 AM CDT Surgery [facility] Operating Room at the Orthopedic [address] [address] Maria Alejandra Brown MD left ARTHRODESIS WRIST,hardware removal 08/07/2024 7:25 AM CDT Anesthesia Event [facility] Center [address] [place] [address] Chayito Linton MD McGowan, Violet Prince COLORER MACHINE 08/07/2024 5:45 AM CDT - 08/07/2024 11:25 AM CDT Hospital Encounter [facility] at the [facility] Center [address] [place] [id number] Maria Alejandra Brown MD Left wrist pain (Primary Dx) Discharge Disposition: Discharge to home or self care 07/19/2024 Telephone [facility] Orthopaedic Surgery [address] [facility] [address] [place] [address] Marissa Myrick BS [id number] N 07/18/2024 7:34 PM CDT - 07/18/2024 11:59 PM CDT Hospital Encounter [facility] ([facility]) [address] [place] [address] Discharge Disposition: Discharge to home or self care 07/18/2024 2:47 PM CDT - 07/18/2024 11:59 PM CDT Hospital Encounter [facility] ([facility]) [address] [place] [address] Discharge Disposition: Discharge to home or self care 07/18/2024 2:44 PM CDT - 07/18/2024 11:59 PM CDT Hospital Encounter [facility] ([facility]) [address] [place] [address] Discharge Disposition: Discharge to home or self care 07/18/2024 2:41 PM CDT - 07/18/2024 11:59 PM CDT Hospital Encounter [facility] ([facility]) [address] [place] [address] Discharge Disposition: Discharge to home or self care 07/18/2024 2:37 PM CDT - 07/18/2024 11:59 PM CDT Hospital Encounter [facility] ([facility]) [address] [place] [address] Discharge Disposition: Discharge to home or self care 07/18/2024 2:31 PM CDT - 07/18/2024 11:59 PM CDT Hospital Encounter [facility] ([facility]) [address] [place] [address] Discharge Disposition: Discharge to home or self care 07/18/2024 2:20 PM CDT Office Visit [facility] Orthopaedic Surgery [address] [facility] 2nd Floor [address] [place] [address] Maria Alejandra Brown MD Sprain of carpal joint of left wrist, initial encounter; Osteoarthritis of left wrist, unspecified osteoarthritis type 07/17/2024 Documentation [facility] Orthopaedic Surgery [address] [facility] [address] [place] [address] Marissa Myrick BS WORK COMP INTAKE FORM from Last 3 Months Allergies Active Allergy Reactions Criticality Noted Date Comments Oxycodone-Acetaminophen Itching Low 08/06/2024 Medications triamterene-hyd roCHLOROthiazid e 37.5-25 mg per tablet Take 1 tablet/capsule by mouth every morning 5 Active DILT-XR 120 mg 24 hr capsule Take 1 capsule (120 mg total) by mouth every morning 5 Active losartan (COZAAR) 100 mg tablet Take 1 tablet (100 mg total) by mouth every morning [address] (NexIUM) 20 mg capsule Take 1 capsule (20 mg total) by mouth daily before breakfast Active glucosamine sulfate (GLUCOSAMINE ORAL) Take 1 tablet by mouth 2 (two) times a day Active diphenhydrAMINE -acetaminophen (TYLENOL PM) 25-500 mg tablet Take 2 tablets by mouth as needed for sleep Active acetaminophen-a spirin-caffeine (EXCEDRIN MIGRAINE) 250-250-65 mg per tablet Take 2 tablets by mouth every 6 (six) hours as needed for headaches Active HYDROcodone-cindi taminophen (NORCO) 5-325 mg per tabletIndicatio ns:Pain Take 1 tablet by mouth every 6 (six) hours as needed for pain 20 tablet 5 Active senna-docusate (PERICOLACE) 8.6-50 mg Take 1 tablet by mouth daily 30 tablet 5 Active oxyCODONE (ROXICODONE) 5 mg immediate release tabletIndicatio ns:Pain Take 1 tablet (5 mg total) by mouth every 4 (four) hours as needed for pain 20 tablet Active Active Problems Problem Noted Date Diagnosed Date Left wrist pain 07/30/2024 Sleep apnea in adult 10/18/2017 Morbid obesity with BMI of 40.0-44.9, adult 10/07 Social History Tobacco Use Types Packs/Day Years Used Date Smoking Tobacco: Never Smokeless Tobacco: Never Alcohol Use Standard Drinks/Week Comments Yes 0 (1 standard drink = 0.6 oz pur e alcohol) AUDIT-C Answer Date Recorded Q1: How often do you have a drink containing alcohol? Never 07/31/2024 Q2: How many drinks containi ng alcohol do you have on a typical day when you are drinking? Patient does not drink Q3: How often do you have si x or more drinks on one occasion? Never 07/31/2024 Personal Safety Answer Date Recorded Have you ever been in or are you currently in a harmful physical or emotional relationship or is someone making you feel afraid or unsafe? 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 Gender Identity Not on file Sexual Orientation Not on file Last Filed Vital Signs Vital Sign Reading Time Taken Comments Blood Pressure 137/85 08/07/2024 11:05 AM CDT Pulse 73 08/07/2024 11:05 AM CDT Temperature 36 C (96.8 F) 08/07/2024 10:20 AM CDT Respiratory Rate 15 08/07/2024 11:05 AM CDT Oxygen Saturation 94% 08/07/2024 11:05 AM CDT Inhaled Oxygen Concentration - - Weight 142.4 kg (314 lb) 08/07/2024 6:00 AM CDT Height 180.3 cm (5' 10.98 ) 08/07/2024 6:00 AM C DT Body Mass Index 43.81 08/07/2024 6:00 AM CDT Plan of Treatment Not on file Medical Devices Implanted Type Area Market Consultant Device Identifier Shelf Expiration Date Model / Serial / Lot Synthes Lcp 118mm Fusion Wrist Short Bend Plate Bone Stainless Steel 02.110.151 - S0 - [id number] Implanted:Qty: 1 on 08/07/2024 by Maria Alejandra Brown MD at [facility] [place] Left: Wrist Synthes 02.110.151 / 0 / Synthes 2.7mm 5mm 16mm 2.5mm Self Tap Stardrive Cortical T8 Screw Bone 202.876 - S0 - [id number] Implanted:Qty: 1 on 08/07/2024 by Maria Alejandra Brown MD at [facility] [place] Left: Wrist Synthes 202.876 / 0 / Synthes 2.7mm 5mm 14mm 2.5mm Self Tap Stardrive Cortical T8 Screw Bone 202.874 - S0 - [id number] Implanted:Qty: 1 on 08/07/2024 by Maria Alejandra Brown MD at [facility] Left: Wrist Synthes 202.874 / 0 / Synthes 2.7mm 2.1mm 18mm Self Tap Lock Stardrive Thread Head Profile T8 202.218 - S0 - [id number] Implanted:Qty: 1 on 08/07/2024 by Maria Alejandra Brown MD at [facility] Left: Wrist Synthes 202.218 / 0 / Synthes 2.7mm 22mm Self Tap Lock Variable Angle Stardrive T8 Screw Bone 02.211.022 - S0 - [id number] Implanted:Qty: 1 on 08/07/2024 by Maria Alejandra Brown MD at [facility] Left: Wrist Synthes 02.211.022 / 0 / Explanted Type Area Market Consultant Device Identifier Shelf Expiration Date Model / Serial / Lot Synthes 3.5mm 6mm 16mm Self Tap Low Profile Stardrive Cortex T15 Full 02.200.016 - S0 - [id number] Explanted:Qty: 2 on 08/07/2024 at [facility] [place] Left: Wrist Synthes 02.200.016 / 0 / Synthes 3.5mm 6mm 20mm Self Tap Low Profile Stardrive Cortex T15 Full 02.200.020 - S0 - [id number] Explanted:Qty: 3 on 08/07/2024 at [facility] [place] Left: Wrist Synthes [id number] 04/07/2029 02.200.020 / 0 / [id number] Procedures Procedure Name Priority Date/Time Associated Diagnosis Comments AR CAST SUP SHT ARM ADULT FBRGL Routine 08/22/2024 12:24 PM CDT Left wrist pain AR APPLICATION CAST ELBOW FINGER SHORT ARM Routine 08/22/2024 12:24 PM CDT Left wrist pain GLUCOSE, WHOLE BLOOD, POC Routine 08/07/2024 10:26 AM CDT TISSUE AEROBIC AND ANAEROBIC CULTURE AND GRAM STAIN Routine 08/07/2024 8:29 AM CDT TISSUE AEROBIC AND ANAEROBIC CULTURE AND GRAM STAIN Routine 08/07/2024 8:26 AM CDT AR AN PROCEDURE PLACEHOLDER Routine 08/07/2024 7:48 AM CDT AR AN ELECTIVE ENDOTRACHEAL AIRWAY Routine 08/07/2024 7:48 AM CDT BONE GRAFT - RADIUS/ULNA 08/07/2024 7:29 AM CDT Left wrist pain Case Notes 08/06@0827: move Stephanie's cases to OR 1 per Aparna via email. BR3/28@1605: okay to move case up to close gap per Melony via case msg. BR3@1338: missing DPC email sent to Amy. JORDAN Special Needs Mini C-arm, synthes wrist fsion plates curved curette, mini and micro accutrak ARTHRODESIS WRIST 08/07/2024 7:2 9 AM CDT Left wrist pain Case Notes 08/06@0827: move [place]'s cases to OR 1 per Aparna via email. BR3/28@1605: okay to move case up to close gap per Melony via case msg. BR3/24@1338: missing DPC email sent to Amy. JORDAN Special Needs Mini C-arm, synthes wrist fsion plates curved curette, mini and micro accutrak AR AN PROCEDURE PLACEHOLDER Routine 08/07/2024 7:16 AM CDT POCT PREOP SCREEN (LPY-RG-PSI-BUN-CR-H BG-HCT) Routine 08/07/2024 6:29 AM CDT POCT PREOP SCREEN (DNG-ZT-BGH-BUN-CR-H BG-HCT) Routine 08/07/2024 6:[address] OUTSIDE REFERENCE Routine 07/18/2024 7:34 PM CDT XR TRANSFER OF OUTSIDE FILMS Routine 07/18/2024 2:47 PM CDT Diagnosis unknown MSK CT OUTSIDE REFERENCE Routine 07/18/2024 2:44 PM CDT Diagnosis unknown XR TRANSFER OF OUTSIDE FILMS Routine 07/18/2024 2:41 PM CDT Diagnosis unknown XR TRANSFER OF OUTSIDE FILMS Routine 07/18/2024 2:37 PM CDT Diagnosis unknown XR TRANSFER OF OUTSIDE FILMS Routine 07/18/2024 2:31 PM CDT Diagnosis unknown from Last 3 Months Results * AR APPLICATION CAST ELBOW FINGER SHORT ARM, AR CAST SUP SHT ARM ADULT FBRGL (08/22/2024 12:24 PM CDT) Narrative Wallace Real BS - 08/22/2024 12:24 PM CDT Wallace Real BS 08/23/2024 5:21 PM Ortho Casting/Splinting Documentation Date/Time: 08/22/2024 12:24 PM Performed by: Wallace Real BS Authorized by: Maria Alejandra Brown MD Sensation: Normal Skin Condition: Clean, dry, and intact Cast Applied: Yes Location: Wrist Wrist: L wrist Cast type: Short arm cast Supplies: Fiberglass Additional Supplies: Cotton padding, cotton stocking/sleeve and gauze Number of fiberglass rolls used: 2 Capillary Refill: Normal Patient tolerance of procedure: Tolerated well, no immediate complications us Maria Alejandra Brown MD IN CLINIC/BEDSIDE ORDERABL ES Final Result * Glucose, Whole Blood, POC (08/07/2024 10:26 AM CDT) Glucose POC 160 70 - 199 mg/dL Blood 08/07/2024 10:2 6 AM CDT 08/07/2024 10:26 AM CDT Maria Alejandra Brown MD LAB BLOOD ORDERABLES Final Result Performing Organization Address [facility] Co de Phone Number KIMBERLY PINEDA [facility] [place] [address] * Tissue aerobic and anaerobic culture and gram stain Tissue Wrist, left (08/07/2024 8:29 AM CDT) Direct Specimen Exam Stain: Rare polymorphonuclear leukocytes seen. No organisms seen. Report Final Report: No growth [facility] Tissue (Wrist, left) 08/07/2024 8:29 AM CDT 08/07/2024 11:37 AM CDT Narrative [facility] - 08/12/2024 12:27 PM CDT Left wrist fusion #2 Testing performed by [facility] Microbiology Laboratory ([phone]) Specimens submitted from normally sterile body sites will have all bacterial morphotypes identified. Specimens that contain grossly mixed cindy and/or are from body sites that are not normally sterile will be examined for Staphylococcus aureus, Pseudomonas aeruginosa, beta-hemolytic strep, vancomycin-resistant Enterococcus, Bacteroides, Parabacteroides, Clostridium perfringens and fungus. If any of these are isolated, the organism will be reported. Current interpretive data was last revised on 2019. Maria Alejandra Brown MD LAB MICROBIOLOGY - GENERAL ORDERABLES Final Result Performing Organization Address City/[facility] Co de Phone Number KIMBERLY PINEDA [facility] Department [place] [address] * Tissue aerobic and anaerobic culture and gram stain Tissue Wrist, left (08/07/2024 8:26 AM CDT) Direct Specimen Exam Stain: No polymorphonuclear leukocytes seen. No organisms seen. Report Final Report: No growth [facility] Tissue (Wrist, left) 08/07/2024 8:26 AM CDT 08/07/2024 11:41 AM CDT Jodi HARRIS [facility] - 08/12/2024 12:26 PM CDT Left wrist #1 Testing performed by [facility] Microbiology Laboratory ([phone]) Specimens submitted from normally sterile body sites will have all bacterial morphotypes identified. Specimens that contain grossly mixed cindy and/or are from body sites that are not normally sterile will be examined for Staphylococcus aureus, Pseudomonas aeruginosa, beta-hemolytic strep, vancomycin-resistant Enterococcus, Bacteroides, Parabacteroides, Clostridium perfringens and fungus. If any of these are isolated, the organism will be reported. Current interpretive data was last revised on 2019. Maria Alejandra Brown MD LAB MICROBIOLOGY - GENERAL ORDERABLES Final Result KIMBERLY PINEDA [facility] Department [place] [address] * AR AN ELECTIVE ENDOTRACHEAL AIRWAY, AR AN PROCEDURE PLACEHOLDER (08/07/2024 7:48 AM CDT) Narrative Leslie Conde CRNA - 08/07/2024 7:48 AM CDT Leslie Conde CRNA 08/07/2024 7:49 AM Airway Patient location: OR Urgency: elective Indications for airway management: anesthesia Difficult airway: no Staff: Placed by: MARKETING DEVELOPMENT SPECIALIST: Leslie Conde CRNA Emergent airway documentation: Risks and benefits discussed: yes Consent obtained: yes Consent given by: patient Airway prep: Preoxygenated: yes Patient position: sniffing Mask difficulty assessment: 0 - not attempted Spontaneous ventilation during airway: absent Sedation level during airway: GA Final airway details: Final airway type: endotracheal airway Tube type: ETT ETT size: 8.0 mm Cuffed: yes Technique used for successful ETT placement: video laryngoscopy Devices/Methods used in placement: stylet Insertion site: oral Blade type: Arjun Video blade type: Benz Blade size: 4 Cormack-Lehane (video): grade I - full view of glottis Cuff volume: 7 mL Cuff inflated with: air ETT to lips: 23 cm Placement verified by: auscultation and CO2 detection Airway secured with: silk tape Number of attempts: 1 Chayito Linton MD ANESTHESIA ORDERABLES Fi nal Result * AR AN PROCEDURE PLACEHOLDER (08/07/2024 7:16 AM CDT) Narrative Chayito Linton MD - 08/07/2024 7:16 AM CDT Chayito Linton MD 08/07/2024 7:16 AM Peripheral Block Patient location during procedure: pre-op holding Reason for block: post-op pain management per surgeon request Ultrasound image in chart or stored: yes Block type: single shot Laterality: left Block type: brachial - supraclavicular Procedure prep: Preprocedure checklist: patient identified, procedure contraindications assessed, site marked, procedure consent, surgical consent, IV checked, risks, benefits and alternatives discussed, monitors and equipment checked and timeout performed Patient position: sitting and head of bed elevated Procedure performed while patient: sedate with meaningful contact Monitoring: oximetry Supplemental O2: nasal cannula Prep solution: chlorhexidine/alcohol Skin infiltrated with lidocaine 1%: yes Peripheral nerve block: Technique: ultrasound guided Needle type: short-bevel and echogenic Needle gauge: 21 G Needle length: 80 mm Injection assessment: injection made incrementally with constant monitoring, local visualized surrounding nerve on ultrasound, negative aspiration for heme, no paresthesias noted, normal resistance to injection and see flowsheet for medication details Assessment: Block success: full evaluation pending Events: patient tolerated procedure well with no complications Chayito Linton MD ANESTHESIA ORDERABLES Fi nal Result * (ABNORMAL) POCT Preop screen (hinlh-Ak-Rym-QDX-Nd-Hin-Hct) (08/07/2024 6:29 AM CDT) Pathologist [facility] K POC 4.1 3.3 - 4.9 mmol/L Comment: Interpretive Data This method is not able to assess for hemolysis, which may falsely increase potassium concentrations. If further testing is needed to evaluate this result, consider in-laboratory plasma potassium. Current Interpretive Data was last revised on 2022. Glucose, fasting, POC 156(H) 70 - 99 mg/dL [facility] Blood 08/07/2024 6:29 AM CDT 08/07/2024 6:29 AM CDT Maria Alejandra Brown MD LAB POCT ORDERABLES - EDUARDO CE Final Result Performing Organization Address [facility] de Phone Number [facility] [place] [address] * (ABNORMAL) POCT Preop screen (qcclv-Et-Gru-NMU-Gf-Ywz-Hct) (08/07/2024 6:19 AM CDT) [facility] K POC >8.0(C) 3.3 - 4.9 mmol/L Comment: Interpretive Data This method is not able to assess for hemolysis, which may falsely increase potassium concentrations. If further testing is needed to evaluate this result, consider in-laboratory plasma potassium. Current Interpretive Data was last revised on 2022. Glucose, fasting, POC 154(H) 70 - 99 mg/dL [facility] Blood 08/07/2024 6:19 AM CDT 08/07/2024 6:19 AM CDT Maria Alejandra Brown MD LAB POCT ORDERABLES - EDUARDO CE Final Result Performing Organization Address [facility] Phone Number KIMBERLY [facility] [place] [address] * MSK CT Outside Reference (07/18/2024 7:34 PM CDT) Impressions RAD_PACS[facility] - 07/18/2024 7:34 PM CDT These images are for Reference purposes only and have not been reviewed by [facility] Radiology. There will be no report generated by a [facility] Radiologist. Narrative RAD_PACFeathr_[facility] - 07/18/2024 7:34 PM CDT EXAMINATION: Images For Reference Purposes Only Maria Alejandra Brown MD IMG CT PROCEDURES Final Re sult Performing Organization Address [facility] Co de Phone Number [email or web address] * XR Outside Reference (07/18/2024 2:47 PM CDT) Impressions [facility] - 07/18/2024 2:47 PM CDT These images are for Reference purposes only and have not been reviewed by [facility] Radiology. There will be no report generated by a [facility] Radiologist. Narrative [facility] - 07/18/2024 2:47 PM CDT EXAMINATION: Images For Reference Purposes Only Maria Alejandra Brown MD IMG XR PROCEDURES Final Re sult Performing Organization Address [facility] Co de Phone Number [email or web address] * MSK CT Outside Reference (07/18/2024 2:44 PM CDT) Impressions [facility] - 07/18/2024 2:44 PM CDT These images are for Reference purposes only and have not been reviewed by [facility] Radiology. There will be no report generated by a [facility] Radiologist. Narrative [facility] - 07/18/2024 2:44 PM CDT EXAMINATION: Images For Reference Purposes Only Maria Alejandra Brown MD IMG CT PROCEDURES Final Re sult Performing Organization Address [facility] de Phone Number [email or web address] * XR Outside Reference (07/18/2024 2:41 PM CDT) Impressions [facility] - 07/18/2024 2:41 PM CDT These images are for Reference purposes only and have not been reviewed by [facility] Radiology. There will be no report generated by a [facility] Radiologist. Narrative [facility] - 07/18/2024 2:41 PM CDT EXAMINATION: Images For Reference Purposes Only Maria Alejandra Brown MD IMG XR PROCEDURES Final Re sult Performing Organization Address [facility] Co de Phone Number [email or web address] * XR Outside Reference (07/18/2024 2:37 PM CDT) Impressions [facility] - 07/18/2024 2:37 PM CDT These images are for Reference purposes only and have not been reviewed by [facility] Radiology. There will be no report generated by a [facility] Radiologist. Narrative [facility] - 07/18/2024 2:37 PM CDT EXAMINATION: Images For Reference Purposes Only Maria Alejandra Brown MD IMG XR PROCEDURES Final Re sult Performing Organization Address City/[facility]/ZIP Co de Phone Number [email or web address] * XR Outside Reference (07/18/2024 2:31 PM CDT) Impressions [facility] - 07/18/2024 2:31 PM CDT These images are for Reference purposes only and have not been reviewed by [facility] Radiology. There will be no report generated by a [facility] Radiologist. Narrative [facility] - 07/18/2024 2:31 PM CDT EXAMINATION: Images For Reference Purposes Only Maria Alejandra Brown MD IMG XR PROCEDURES Final Re sult Performing Organization Address City/[facility] Co de Phone Number [facility] from Last 3 Months Insurance [employer] [facility] [employer] Care Teams Fabrication Supervisor Relationship Specialty Start Date End Date Bib Sheikh MD [address] [place] [address] PCP - General Family Medicine 07/22/17
--- OUTSIDE RECORDS SUMMARY | 2024-09-18 09:41 | XMS_ITS | Clinical Summary ---
Author Organization [facility] [address] Address [address] [place] [address] Care Team Providers Care Automotive Service Advisor Name Role Phone Bib Sheikh MD Primary Care Provider Allergies Active Allergy Reactions Criticality Noted Date [...] needed for pain 20 tablet 5 Active Active Problems Problem Noted Date Diagnosed Date Left wrist pain 07/30/2024 Sleep apnea in adult 10/18/2017 Morbid obesity with BMI of 40.0-44.9, adult 10/07 Encounters Date Type Department Care Team Description 08/27/2024 Telephone [facility] Orthopaedic Surgery [address] [facility] 2nd Floor [address] [place] [address] Ibeth Kaufman RMA [id number] N 08/22/2024 10:00 AM CDT Office Visit [facility] Orthopaedic Surgery [address] [place] [address] Floor [address] [place] [address] Maria Alejandra Brown MD Left wrist pain (Primary Dx) 08/08/2024 Documentation [facility] Orthopaedic Surgery [address] [place] [address] Floor [address] [place] [address] Maria Alejandra Brown MD 08/07/2024 7:30 AM CDT - 08/07/2024 9:45 AM CDT Surgery [facility] [address] [place] [address] Maria Alejandra Brown MD left ARTHRODESIS WRIST,hardware removal 08/07/2024 7:25 AM CDT Anesthesia Event [facility] [address] [place] [address] Chayito Linton MD McGowan, Violet Prince NP 08/07/2024 5:45 AM CDT - 08/07/2024 11:25 AM CDT Hospital Encounter [facility] [address] [place] [address] Maria Alejandra Brown MD Left wrist pain (Primary Dx) Discharge Disposition: Discharge to home or self care 07/19/2024 Telephone [facility] Orthopaedic Surgery [address] [place] [address] Marissa Myrick BS [id number] Reyes 07/18/2024 7:34 PM CDT - 07/18/2024 11:59 PM CDT Hospital Encounter [facility] ([facility]) [address] [place] [address] Discharge Disposition: Discharge to home or self care 07/18/2024 2:47 PM CDT - 07/18/2024 11:59 PM CDT Hospital Encounter [facility] ([facility]) [address] [place] [address] Discharge Disposition: Discharge to home or self care 07/18/2024 2:44 PM CDT - 07/18/2024 11:59 PM CDT Hospital Encounter [facility] ([facility]) [address] [place] [address] Discharge Disposition: Discharge to home or self care 07/18/2024 2:41 PM CDT - 07/18/2024 11:59 PM CDT Hospital Encounter [facility] ([facility]) [address] [place] [address] Discharge Disposition: Discharge to home or self care 07/18/2024 2:37 PM CDT - 07/18/2024 11:59 PM CDT Hospital Encounter [facility] ([facility]) [address] [place] [address] Discharge Disposition: Discharge to home or self care 07/18/2024 2:31 PM CDT - 07/18/2024 11:59 PM CDT Hospital Encounter [facility] ([facility]) [address] [place] [address] Discharge Disposition: Discharge to home or self care 07/18/2024 2:20 PM CDT Office Visit [facility] Orthopaedic Surgery [address] [facility] 2nd [address] [place] [address] Maria Alejandra Brown MD Sprain of carpal joint of left wrist, initial encounter; Osteoarthritis of left wrist, unspecified osteoarthritis type 07/17/2024 Documentation [facility] Orthopaedic Surgery [address] [facility] [address] [place] [address] Marissa Myrick BS WORK COMP INTAKE FORM from Last 3 Months Surgical History Surgery Date Site/Laterality Comments SHOULDER SURGERY Left torn labrum WRIST SURGERY Left x2 COLONOSCOPY Medical History Medical History Date Comments Delayed emergence from general anesthesia just a little slower to way up, no delayed discharge HTN (hypertension) Family History Medical History Relation Name Comments Parkinsonism Mother Stent Mother Diabetes Sister Anesthesia problems Neg Hx Relation Name Status Comments Brother Alive Father [...] on file 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 Gender Identity Not on file Sexual Orientation [...] 08/07/2024 6:00 AM CDT Plan of Treatment Health Maintenance Due Date Last Done Comments Colon Cancer Screening-Colonoscopy 1965 Depression Screening 1964 Hepatitis C Screening 1964 Prostate Cancer Screening-PSA 1964 Hepatitis B Screening 1982 Regular Well Visit/Exam 18-64 1982 Zoster Vaccine (1 of 2) 2014 Covid-19 Vaccine (3 - 2023-2 5 season) 2024 09/19/2020, 08/27/2020 Influenza Vaccine (Season Ended) 2025 01/30/2021 DTaP/Tdap/Td Vaccine (2 - Td or Tdap) 01/17/2032 01/16/2022 Pneumococcal vaccine <65 Aged Out No longer eligible based on patient's age to complete this topic Medical Devices Implanted Type Area Research Physicist Device Identifier Shelf Expiration Date Model / Serial / Lot Synthes Lcp 118mm Fusion Wrist Short Bend Plate Bone Stainless Steel 02.110.151 - S0 - [id number] Implanted:Qty: 1 on 08/07/2024 by Maria Alejandra Brown MD at [facility] [place] Left: Wrist Synthes 02.110.151 / 0 / Synthes 2.7mm 5mm 16mm 2.5mm Self Tap Stardrive Cortical T8 Screw Bone 202.876 - S0 - [id number] Implanted:Qty: 1 on 08/07/2024 by Maria Alejandra Brown MD at [facility] [place] Left: Wrist Synthes 202.876 / 0 / Synthes 2.7mm 5mm 14mm 2.5mm Self Tap Stardrive Cortical T8 Screw Bone 202.874 - S0 - [id number] Implanted:Qty: 1 on 08/07/2024 by Maria Alejandra Brown MD at [facility] [place] Left: Wrist Synthes 202.874 / 0 / Synthes 2.7mm 2.1mm 18mm Self Tap Lock Stardrive Thread Head Profile T8 202.218 - S0 - [id number] Implanted:Qty: 1 on 08/07/2024 by Maria Alejandra Brown MD at [facility] [place] Left: Wrist Synthes 202.218 / 0 / Synthes 2.7mm 22mm Self Tap Lock Variable Angle Stardrive T8 Screw Bone ..022 - S0 - [id number] Implanted:Qty: 1 on 08/07/2024 by Maria Alejandra Brown MD at [facility] Left: Wrist Synthes .022 / 0 / Explanted Type Area Research Physicist Device Identifier Shelf Expiration Date Model / Serial / Lot Synthes 3.5mm 6mm 16mm Self Tap Low Profile Stardrive Cortex T15 Full 02.200.016 - S0 - [id number] Explanted:Qty: 2 on 08/07/2024 at [facility] [place] Left: Wrist Synthes ..016 / 0 / Synthes 3.5mm 6mm 20mm Self Tap Low Profile Stardrive Cortex T15 Full 02..020 - S0 - [id number] Explanted:Qty: 3 on 08/07/2024 at [facility] [place] Left: Wrist Synthes [id number] 04/07/2029 02.200.020 / 0 / [id number] Procedures Procedure Name Priority Date/Time Associated Diagnosis Comments ME CAST SUP SHT ARM ADULT FBRGL Routine 08/22/2024 12:24 PM CDT Left wrist pain ME APPLICATION CAST ELBOW FINGER SHORT ARM Routine 08/22/2024 12:24 PM CDT Left wrist pain GLUCOSE, WHOLE BLOOD, POC Routine 08/07/2024 10:26 AM CDT TISSUE AEROBIC AND ANAEROBIC CULTURE AND GRAM STAIN Routine 08/07/2024 8:29 AM CDT TISSUE AEROBIC AND ANAEROBIC CULTURE AND GRAM STAIN Routine 08/07/2024 8:26 AM CDT ME AN PROCEDURE PLACEHOLDER Routine 08/07/2024 7:48 AM CDT ME AN ELECTIVE ENDOTRACHEAL AIRWAY Routine 08/07/2024 7:48 AM CDT BONE GRAFT - RADIUS/ULNA 08/07/2024 7:29 AM CDT Left wrist pain Case Notes 08/06@826: move [place] cases to OR 1 per Aparna via email. BR08/03@1605: okay to move case up to close gap per Melony via case msg. BR07/30@1338: missing DPC email sent to Amy. JORDAN Special Needs Mini C-arm, synthes wrist fsion plates curved curette, mini and micro accutrak ARTHRODESIS WRIST 08/07/2024 7:2 9 AM CDT Left wrist pain Case Notes 08/06@826: move [place]'s cases to OR 1 per Aparna via email. BR08/03@1605: okay to move case up to close gap per Melony via case msg. BR07/30@1338: missing DPC email sent to Amy. JORDAN Special Needs Mini C-arm, synthes wrist fsion plates curved curette, mini and micro accutrak ME AN PROCEDURE PLACEHOLDER Routine 08/07/2024 7:16 AM CDT POCT PREOP SCREEN (UDM-IM-IXM-BUN-CR-H BG-HCT) Routine 08/07/2024 6:29 AM CDT POCT PREOP SCREEN (IZI-FI-RAK-BUN-CR-H BG-HCT) Routine 08/07/2024 6:19 AM CDT MSK [...] unknown from Last 3 Months Results * ME APPLICATION CAST ELBOW FINGER SHORT ARM, ME CAST SUP SHT ARM ADULT FBRGL (08/22/2024 [...] of procedure: Tolerated well, no immediate complications Maria Alejandra Brown MD IN CLINIC/BEDSIDE ORDERABL ES Final Result * Glucose, Whole Blood, POC (08/07/2024 10:26 AM CDT) Glucose POC 160 70 - 199 mg/dL Blood 08/07/2024 10:2 6 AM CDT 08/07/2024 10:26 AM CDT Maria Alejandra Brown MD LAB BLOOD ORDERABLES Final Result KIMBERLY PINEDA One [facility] Department [place] [address] * Tissue aerobic and anaerobic culture and gram stain Tissue Wrist, left (08/07/2024 8:29 AM CDT) Direct Specimen Exam Stain: Rare polymorphonuclear leukocytes seen. No organisms seen. Report Final Report: No growth KIMBERLY MISTRY Tissue (Wrist, left) 08/07/2024 8:29 AM CDT 08/07/2024 11:37 AM CDT Narrative KIMBERLY MISTRY - 08/12/2024 12:27 PM CDT Left wrist fusion #2 Testing performed by [facility] ([phone]) Specimens submitted from normally sterile body sites [...] GENERAL ORDERABLES Final Result Performing Organization Address [facility] Co de Phone Number [facility] [place] [address] * Tissue aerobic and anaerobic culture and gram stain Tissue Wrist, left (08/07/2024 8:26 AM CDT) Direct Specimen Exam Stain: No polymorphonuclear leukocytes seen. No organisms seen. Report Final Report: No growth [facility] Tissue (Wrist, left) 08/07/2024 8:26 AM CDT 08/07/2024 11:41 AM CDT Narrative [facility]LY [facility] - 08/12/2024 12:26 PM CDT Left wrist #1 Testing performed by [facility] ([phone]) Specimens submitted from normally sterile body sites [...] GENERAL ORDERABLES Final Result Performing Organization Address [facility] Co de Phone Number KIM[facility]LY [facility] Sandra [facility] [place] [address] * ME AN ELECTIVE ENDOTRACHEAL AIRWAY, ME AN PROCEDURE PLACEHOLDER (08/07/2024 7:48 AM CDT) Leslie Carlin CRNA - 08/07/2024 7:48 AM CDT Leslie Conde CRNA 08/07/2024 7:49 AM Airway Patient location: OR Urgency: elective Indications for airway management: anesthesia Difficult airway: no Staff: Placed by: CARPET CLEANER: Leslie Conde CRNA Emergent airway documentation: Risks [...] oral Blade type: Arjun Video blade type: DirectLaw Blade size: 4 Cormack-Lehane (video): grade I - full view of glottis Cuff volume: 7 mL Cuff inflated with: air ETT to lips: 23 cm Placement verified by: auscultation and CO2 detection Airway secured with: silk tape Number of attempts: 1 Chayito Linton MD ANESTHESIA ORDERABLES Fi nal Result * ME AN PROCEDURE PLACEHOLDER (08/07/2024 7:16 AM CDT) Chayito Ornelas MD - 08/07/2024 7:16 AM CDT Chayito [...] nal Result * (ABNORMAL) POCT Preop screen (oqyvx-Jv-Ydf-BNE-Gf-Jbl-Hct) (08/07/2024 6:29 AM CDT) [facility] POC 4.1 3.3 - 4.9 mmol/L Comment: Interpretive Data This method is not able to assess for hemolysis, which may falsely increase potassium concentrations. If further testing is needed to evaluate this result, consider in-laboratory plasma potassium. Current Interpretive Data was last revised on 2022. Glucose, fasting, POC 156(H) 70 - 99 mg/dL [facility] Blood 08/07/2024 6:29 AM CDT 08/07/2024 6:29 AM CDT Maria Alejandra Brown MD LAB POCT ORDERABLES - EDUARDO CE Final Result [facility] Department [place] [address] * (ABNORMAL) POCT Preop screen (lhccr-Cl-Obs-MVG-Qi-Ecw-Hct) (08/07/2024 6:19 AM CDT) [facility] POC >8.0(C) 3.3 - 4.9 mmol/L Comment: Interpretive Data This method is not able to assess for hemolysis, which may falsely increase potassium concentrations. If further testing is needed to evaluate this result, consider in-laboratory plasma potassium. Current Interpretive Data was last revised on 2022. Glucose, fasting, POC 154(H) 70 - 99 mg/dL [facility] Blood 08/07/2024 6:19 AM CDT 08/07/2024 6:19 AM CDT Maria Alejandra Brown MD LAB POCT ORDERABLES - EDUARDO CE Final Result Performing Organization Address [facility] de Phone Number KIMBERLY MISTRY [facility] Department [place] [address] * MSK CT Outside Reference (07/18/2024 7:34 PM CDT) Impressions [facility] - 07/18/2024 7:34 PM CDT These images are for Reference purposes only and have not been reviewed by [facility] Radiology. There will be no report generated by a [facility] Radiologist. Narrative RAD_PACS[facility] - 07/18/2024 7:34 PM CDT EXAMINATION: Images For Reference Purposes Only Maria Alejandra Brown MD IMG CT PROCEDURES Final Re sult Performing Organization Address [facility] de Phone Number [facility] * XR Outside Reference (07/18/2024 2:47 PM CDT) Impressions [facility] - 07/18/2024 2:47 PM CDT These images are for Reference purposes only and have not been reviewed by [facility] Radiology. There will be no report generated by a [facility] Radiologist. Narrative [facility]_PACS[facility] - 07/18/2024 2:47 PM CDT EXAMINATION: Images For Reference Purposes Only Maria Alejandra Brown MD IMG XR PROCEDURES Final Re sult Performing Organization Address [facility] Co de Phone Number [email or web address] * MSK CT Outside Reference (07/18/2024 2:44 PM CDT) Impressions [facility] - 07/18/2024 2:44 PM CDT These images are for Reference purposes only and have not been reviewed by [facility]. There will be no report generated by a [facility] Radiologist. Narrative [facility] - 07/18/2024 2:44 PM CDT EXAMINATION: Images For Reference Purposes Only Maria Alejandra Brown MD IMG CT PROCEDURES Final Re sult Performing Organization Address [facility] Co de Phone Number [email or web address] * XR Outside Reference (07/18/2024 2:41 PM CDT) Impressions [facility] - 07/18/2024 2:41 PM CDT These images are for Reference purposes only and have not been reviewed by [facility]iology. There will be no report generated by a [facility] Radiologist. Narrative [facility] - 07/18/2024 2:41 PM CDT EXAMINATION: Images For Reference Purposes Only Maria Alejandra Brown MD IMG XR PROCEDURES Final Re sult Performing Organization Address [facility] de Phone Number [facility] * XR Outside Reference (07/18/2024 2:37 PM CDT) Impressions [facility] - 07/18/2024 2:37 PM CDT These images are for Reference purposes only and have not been reviewed by [facility]. There will be no report generated by a [facility] Radiologist. Narrative [facility] - 07/18/2024 2:37 PM CDT EXAMINATION: Images For Reference Purposes Only Maria Alejandra Brown MD IMG XR PROCEDURES Final Re sult Performing Organization Address [facility] Co de Phone Number [facility] * XR Outside Reference (07/18/2024 2:31 PM CDT) Impressions [facility] - 07/18/2024 2:31 PM CDT These images are for Reference purposes only and have not been reviewed by [facility]. There will be no report generated by a [facility] Radiologist. Narrative [facility] - 07/18/2024 2:31 PM CDT EXAMINATION: Images For Reference Purposes Only us Maria Alejandra Brown MD IMG XR PROCEDURES Final Re sult [facility] from Last 3 Months Insurance Clinked [facility] LINDA SLAUGHTER WORKERS COMPENSATION GENERIC Care Teams Automotive Service Advisor Relationship Specialty Start Date End Date Bib Sheikh MD [address] [place] [address] PCP - General Family Medicine 07/22/17
[2024-09-18 10:03] LABS: Alanine Aminotransferase 95 U/L (6-50); Albumin Level 4.1 g/dL (3.5-5.1); Alkaline Phosphatase 72 U/L (38-126); Anion Gap 8 mmol/L (4-12); Aspartate Amino Transferase 55 U/L (17-59); Bilirubin,Total 0.6 mg/dL (0.2-1.3); Blood Urea Nitrogen 18 mg/dL (9-20); Calcium 8.9 mg/dL (8.4-10.2); Carbon Dioxide 28 mmol/L (22-30); Chloride 102 mmol/L (98-107); Estimated Glomerular Filt Rate > 60; Glucose 177 mg/dL (65-110); Osmolality Calculated 291 mOsm/kg (285-295); Potassium 4.5 mmol/L (3.4-5.0); Sodium 138 mmol/L (137-145); Total Protein 7.3 g/dL (6.3-8.2)
[2024-09-18 10:05] LABS: Hemoglobin A1C 8.1 % (<5.7)
[2024-09-18 10:12] LABS: NT Pro B Type Natriuretic Pept 48 pg/mL (19.9-100)
== END 2024-09-18 09:29 | disposition home or self-care (01) ==
LOC: CHSLAB 09:29
PROVIDERS: PCP Family Medicine; Visit Provider Physician Assistant
DX: E11.9 Type 2 diabetes mellitus without complications (principal); I10 Essential (primary) hypertension; E78.5 Hyperlipidemia, unspecified; M79.89 Other specified soft tissue disorders; I45.10 Unspecified right bundle-branch block; R94.31 Abnormal electrocardiogram [ECG] [EKG]; Z78.9 Other specified health status
CPT/HCPCS: 36415; 80053; 83036; 83880; 85025

== ENCOUNTER 2024-11-10 10:28 | Outpatient (CLI) | payer OTHER, SELFPAY ==
--- NOTE | ~2024-11-10 | US_ITS ---
US soft tissue chest 11/10/2024 10:52 Indication: Painful left lateral chest axillary region. Patient currently on antibiotics. Thin bloody discharge. Procedure: High-resolution Limited ultrasound of the left breast in the area of palpable concern Comparison: No prior studies for comparison. Findings: In the area of the left axilla/arm corresponding to the patient's pain there is an irregula r fluid collection located superficially with ill-defined margins measuring 9 x 7 x 7 mm. No internal vascularity. No abnormal discrete masses are identified. There is posterior acoustic enhancement. Impression: 1: Irregular shaped 9 mm fluid collection in the area of palpable concern, suspicious for infection. Recommend follow-up ultrasound to assess for resolution as clinically warranted. Consider ultrasound- guided aspiration. Reviewed, dictated and finalized at location A. Impression: 1: Irregular shaped 9 mm fluid collection in the area of palpable concern, susp icious for infection. Recommend follow-up ultrasound to assess for resolution a s clinically warranted. Consider ultrasound-guided aspiration.
== END 2024-11-10 10:29 | disposition home or self-care (01) ==
LOC: MICIMG 10:28
PROVIDERS: PCP Family Medicine; Visit Provider Physician Assistant
DX: R93.89 Abnormal findings on diagnostic imaging of other specified body structures (principal); L72.9 Follicular cyst of the skin and subcutaneous tissue, unspecified
CPT/HCPCS: 76604

== ENCOUNTER 2025-05-06 09:03 | Outpatient (CLI) | payer OTHER, SELFPAY ==
--- OUTSIDE RECORDS SUMMARY | 2025-05-06 09:13 | XMS_ITS | Encounter Summary ---
Author Organization 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 Gender Identity Not on file Sexual Orientation Not on file documented as of this encounter Plan of Treatment Not on file documented as of this encounter Procedures Procedure Name Priority Date/Time Associated Diagnosis Comments SLEEP LAB/STUDY - RESULT 06/26/2017 documented in this encounter Results * SLEEP LAB/STUDY - RESULT (06/26/2017) Provider Scanning Final Result documented in this encounter Visit Diagnoses Not on filedocumented in this encounter Care Teams Biomedical Engineer Relationship Specialty Start Date End Date Bib Sheikh MD [address] [facility] [address] [place] [address] PCP - General Family Medicine 07/22/17 documented as of this encounter
--- OUTSIDE RECORDS SUMMARY | 2025-05-06 09:13 | XMS_ITS | Clinical Summary ---
[facility] [address] Address [address] [place] [address] Care Team Providers Care Citrix Administrator Name Role Phone Bib Sheikh MD Primary [...] needed for pain 20 tablet 5 Active chlorthalidone (HYGROTON) 25 mg tablet Take 1 tablet (25 mg total) by mouth daily 5 Active clobetasoL (TEMOVATE) 0.05 % cream APPLY TO THE AFFECTED AREA(S) TWICE DAILY FOR UP TO FOUR WEEKS, THEN TAKE A TWO WEEK BREAK. ONCE RESOLVED, APPLY NEEDED 5 Active Mounjaro 2.5 mg/0.5 mL pen injector injection INJECT 2.5 MG UNDER THE SKIN ONCE WEEKLY 5 Active Mounjaro 5 mg/0.5 mL pen injector injection INJECT 5 MG UNDER THE SKIN ONCE WEEKLY 5 Active dilTIAZem CD 180 mg 24 hr capsule 5 Active tadalafiL (ADCIRCA) 10 mg tablet TAKE 1 TABLET BY MOUTH ONCE DAILY NEEDED FOR SEXUAL ACTIVITY 5 Active Active Problems Problem Noted Date Diagnosed Date Left wrist pain 07/30/2024 Sleep apnea in adult 10/18/2017 Morbid obesity with BMI of 40.0-44.9, adult 10/07 Surgical History Surgery Date Site/Laterality Comments SHOULDER [...] on file 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 Gender Identity Not on file Sexual Orientation [...] 6:00 AM CDT Height 180.3 cm (5' 10.98) 08/07/2024 6:00 AM C DT Body Mass Index 43.81 08/07/2024 6:00 AM CDT Plan of Treatment Health Maintenance Due Date Last Done Comments Colon Cancer Screening-Colonoscopy 1965 Depression Screening 1964 Hepatitis C Screening 1964 Prostate Cancer Screening-PSA 1964 Hepatitis B Screening 1982 Regular Well Visit/Exam 18-64 1982 Zoster Vaccine (1 of 2) 2014 Covid-19 Vaccine (3 - 2024-2 6 season) 2025 09/19/2020, 08/27/2020 Influenza Vaccine (#1) 2025 01/30/2021 DTaP/Tdap/Td Vaccine (2 - Td or Tdap) 01/17/2032 01/16/2022 Pneumococcal vaccine <65 Aged Out No longer eligible based on patient's age to complete this topic Medical Devices Implanted Type Area Film Reader Device Identifier Shelf Expiration Date Model / Serial / Lot Synthes Lcp 118mm Fusion Wrist Short Bend Plate Bone Stainless Steel .151 - S0 - [id number] Implanted:Qty: 1 on 08/07/2024 by Maria Alejandra Brown MD at [facility] Left: Wrist Synthes 02.110.151 / 0 / Synthes 2.7mm 5mm 16mm 2.5mm Self Tap Stardrive Cortical T8 Screw Bone 202.876 - S0 - [id number] Implanted:Qty: 1 on 08/07/2024 by Maria Alejandra Brown MD at [facility] [place] Left: Wrist Synthes 202.876 / 0 / Synthes 2.7mm 5mm 14mm 2.5mm Self Tap Stardrive Cortical T8 Screw Bone 202.874 - S0 - [id number] Implanted:Qty: 1 on 08/07/2024 by Maria Alejandra Brown MD at [facility] [place] Left: Wrist Synthes 202.874 / 0 / Synthes 2.7mm 2.1mm 18mm Self Tap Lock Stardrive Thread Head Profile T8 202.218 - S0 - [id number] Implanted:Qty: 1 on 08/07/2024 by Maria Alejandra Brown MD at [facility] [place] Left: Wrist Synthes 202.218 / 0 / Synthes 2.7mm 22mm Self Tap Lock Variable Angle Stardrive T8 Screw Bone 02.211.022 - S0 - [id number] Implanted:Qty: 1 on 08/07/2024 by Maria Alejandra Brown MD at [facility] [place] Left: Wrist Synthes 02.211.022 / 0 / Explanted Type Area Film Reader Device Identifier Shelf Expiration Date Model / Serial / Lot Synthes 3.5mm 6mm 16mm Self Tap Low Profile Stardrive Cortex T15 Full 02.200.016 - S0 - [id number] Explanted:Qty: 2 on 08/07/2024 at [facility] [place] Left: Wrist Synthes 02.200.016 / 0 / Synthes 3.5mm 6mm 20mm Self Tap Low Profile Stardrive Cortex T15 Full 02.200.020 - S0 - [id number] Explanted:Qty: 3 on 08/07/2024 at [facility] [place] Left: Wrist Synthes [id number] 04/07/2029 02.200.020 / 0 / [id number] [place] [id number] [employer] [facility] WORKERS COMPENSATION GENERIC Care Teams Citrix Administrator Relationship Specialty Start Date End Date Bib Sheikh MD [address] [place] [address] PCP - General Family Medicine 07/22/17
--- OUTSIDE RECORDS SUMMARY | 2025-05-06 09:13 | XMS_ITS | Encounter Summary ---
Author Organization [facility] Healthcare Address [address] [place] [address] Care Team Providers Care Canteen Manager Name Role Phone Bib Sheikh MD Primary Care Provider Encounter Details Date Type Department Care Team (Late st Contact Info) Description 06/21/2017 Orders Only [facility] [place] Information Management [address] [place] [id number] Scanning, Provider Social History Tobacco Use Types Packs/Day Years Used Date Smoking Tobacco: Never Assessed Sex and Gender Information Value Date Recorded Sex Assigned at Not on file 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 Gender Identity Not on file Sexual Orientation Not on file documented as of this encounter Plan of Treatment Not on file documented as of this encounter Procedures Procedure Name Priority Date/Time Associated Diagnosis Comments SCAN - LABS 06/21/2017 documented in this encounter Results * SCAN - LABS (06/21/2017) us Provider Scanning Final Result documented in this encounter Visit Diagnoses Not on filedocumented in this encounter Care Teams Canteen Manager Relationship Specialty Start Date End Date Bib Sheikh MD [address] [facility] [address] [place] [address] PCP - General Family Medicine 07/22/17 documented as of this encounter
--- OUTSIDE RECORDS SUMMARY | 2025-05-06 09:14 | XMS_ITS | Patient Health Record ---
Author Organization [facility] Address [address] [place] [address] [place] [address] Phone [phone] Care Team Providers Care Sound Controller Name Role Phone Dino Nunez MD Primary Care Provider [phone] KASANDRA KAN CHARLES Unavailable Unavailable Reason For Referral No Information Medications Medication SIG (Take, Route, Frequency, Duration) Notes Start Date End Date Diagnosis (ICD Code) Status Lisinopril-hydroCH LOROthiazide 20-12.5 MG Tablet 1 tablet Orally Once a day Active Social History Sex Observation Social History Observation Description Sex Observation Male Problems Problem Type SNOMED Code ICD Code Dates Problem Status W/U Status Risk Notes Problem Musculoskeletal disorder of the neck (974227798) Musculoskeletal Disorder of the neck (723.9) Added On:06/04 Active confirmed Problem Cervical spondylosis without myelopathy (328080659) Cervical spondylosis without myelopathy (721.0) Added On:06/04 Active confirmed Problem Cervical radiculopathy (53373784) Cervical Radiculopathy (723.4) Added On:06/04 Active confirmed Plan Of Treatment No Information Insurance Providers Payer Name Payer Address Payer Phone Subscriber Number Group Number Insured Name Patient Relationship to Insured Coverage Start Date Coverage End Date [employer] HMO [address] [place] [phone] [id number] MARIA ALEJANDRA FALLON Self - patient is the insured 4 Medical (General) History Medical History History ICD Code HTN Surgical History Surgery Date(Month/Year) Left shoulder labrum repair 08/2013
[2025-05-06 09:20] LABS: Add Urine Microscopic? YES; Appearance Urine Clear (Clear); Glucose Urine UA Negative (Negative); Hematocrit 45.2 % (40.0-54.0); Hemoglobin 14.9 g/dL (14.0-18.0); Leukocyte Esterase Ur Negative (Negative); Mean Corpuscular HGB Conc 33.0 g/dL (32-36); Mean Corpuscular Hemoglobin 27.8 pg (27.0-31.0); Mean Corpuscular Volume 84.3 fL (78.0-102.0); Nitrate Urine Negative (Negative); Platelet Count Result 218 K/mm3 (150-420); Red Blood Count 5.36 M/mm3 (4.70-6.10); Specific Grav Ur 1.010 (1.010-1.020); White Blood Count 7.8 K/mm3 (4.8-10.8)
[2025-05-06 09:36] LABS: Alanine Aminotransferase 25 U/L (6-50); Albumin Level 4.4 g/dL (3.5-5.1); Alkaline Phosphatase 62 U/L (38-126); Anion Gap 11 mmol/L (4-12); Aspartate Amino Transferase 29 U/L (17-59); Bilirubin,Total 0.5 mg/dL (0.2-1.3); Blood Urea Nitrogen 17 mg/dL (9-20); Calcium 9.5 mg/dL (8.4-10.2); Carbon Dioxide 29 mmol/L (22-30); Chloride 102 mmol/L (98-107); Cholesterol 210 mg/dL (0-200); Estimated Glomerular Filt Rate 53; Glucose 103 mg/dL (65-110); HDL Direct 41 mg/dL; Osmolality Calculated 295 mOsm/kg (285-295); Potassium 3.4 mmol/L (3.4-5.0); Sodium 142 mmol/L (137-145); Total Protein 7.8 g/dL (6.3-8.2); Triglycerides 117 mg/dL (<150)
[2025-05-06 09:42] LABS: Hemoglobin A1C 5.0 % (<5.7)
[2025-05-06 09:42] LABS: MALB Creatinine Ratio 20.0 mg/g (0-30)
[2025-05-06 10:06] LABS: Prostate Specific Antigen 3.1 ng/mL (< OR = 4.0); Thyroid Stimulating Hormone 0.705 uIU/mL (0.465-4.680)
== END 2025-05-06 09:04 | disposition home or self-care (01) ==
LOC: CHSLAB 09:05
PROVIDERS: PCP Family Medicine; Visit Provider Physician Assistant
DX: Z00.00 Encounter for general adult medical examination without abnormal findings (principal); R97.20 Elevated prostate specific antigen [PSA]; N40.0 Benign prostatic hyperplasia without lower urinary tract symptoms; E11.9 Type 2 diabetes mellitus without complications; I10 Essential (primary) hypertension; E78.5 Hyperlipidemia, unspecified; Z78.9 Other specified health status
CPT/HCPCS: 36415; 80053; 80061; 81001; 82043; 83036; 84153; 84443; 85027